=== PATIENT | female | born 1985 | race Caucasian/White ===

== ENCOUNTER 2016-10-22 19:10 | Inpatient (IN) | payer OTHER ==
[~2016-10-22] VITALS: Ht 157.5 cm; Wt 63.5 kg
[~2016-10-22 19:10] MED LIST: ALEVE220 MG PO; ASPIRIN81 M2 PO; CELLCEPT500 MG PO; CHLORTHALIDONE50 MG PO; COLACE100 MG PO; COZAAR100 MG PO; DELTASONE5 MG PO; DILAUDID2 MG PO; INDERIDE 40/1 TABLET PO; MYFORTIC360 MG PO; NAPROSYN500 MG PO; NORCO 5/3251 TABLET PO; NORVASC10 MG PO; NORVASC5 MG PO; OSCAL 250 W/VI250 MG PO; PLAQUENIL200 MG PO; PREDNISONE10 MG PO; RAYOS5 MG PO; ROXICODONE15 MG PO; ULTRAM50 MG PO; ZESTRIL,PRINIVI10 M1 GT; ZESTRIL,PRINIVI10 MG PO
[2016-10-22 20:03] LABS: HEMATOCRIT 41.9 % (36.0-46.0); MCHC 33.2 G/DL (30.0-36.0); MCV 75.5 FL (83-99); RBC DIS.WIDTH-CV 13.7 % (11.8-14.6); RBC DIS.WIDTH-SD 37.3 % (39-53); RED BLOOD COUNT 5.55 M/uL (3.80-5.20); WHITE BLOOD COUNT 8.9 K/uL (4.1-10.2)
[2016-10-22 20:22] LABS: CHLORIDE 109 mEq/L (99-109); POTASSIUM 3.9 mEq/L (3.7-5.4); SODIUM 146 mEq/L (136-147)
[2016-10-22 20:24] LABS: GLUCOSE 100 mg/dL (70-99)
[2016-10-22 20:25] LABS: ANION GAP 12 MEQ/L (2-14)
[2016-10-22 20:26] LABS: TOTAL BILIRUBIN 0.5 mg/dL (0.0-1.0)
[2016-10-22 20:28] LABS: ALKALINE PHOSPHATASE 75 IU/L (3-129); GFR ESTIMATE (CALCULATED) 22 mL/min/
[2016-10-22 20:29] LABS: UREA NITROGEN (BUN) 33 mg/dL (9-23)
[2016-10-22 20:36] LABS: QUANTITATIVE HCG < 4.0 MIU/ML
[2016-10-22 20:44] LABS: LIPASE 35 U/L (1.0-51.0)
[2016-10-22 21:07] LABS: HEMATOLOGY COMMENT 1 NPD; PLATELET COUNT 100 K/uL (156-360)
[2016-10-22 22:15] LABS: SERUM ETHYL ALCOHOL < 10 mg/dL
[2016-10-22 22:18] LABS: SALICYLATE < 5.0 MG/DL (15-30)
[2016-10-22 23:35] LABS: ADD MIUA? YES; BILIRUBIN NEGATIVE; BLOOD SMALL; COLOR YELLOW ((YELLOW)); GLUCOSE (STRIP) NEGATIVE; KETONES NEGATIVE; LEUKOCYTES NEGATIVE; NITRITE NEGATIVE; PH, URINE 7.5 (5-8); PROTEIN (STRIP) >=300; SPECIFIC GRAVITY 1.016 (1.000-1.030); UROBILINOGEN 0.2 MG/DL (0.2-1.0)
[2016-10-23 00:29] LABS: AMPHETAMINE NEGATIVE (500 ng/mL); BARBITURATES NEGATIVE (200 ng/mL); BENZODIAZEPINES NEGATIVE (150 ng/mL); COCAINE NEGATIVE (150 ng/mL); INTERNAL CONTROLS VALID? YES; METHADONE NEGATIVE (200 ng/mL); METHAMPHETAMINE NEGATIVE (500 ng/mL); OPIATES (MORPHINE) NEGATIVE (100 ng/mL); OXYCODONE PRESUMPTIVE POSITIVE (100 ng/mL); PHENCYCLIDINE NEGATIVE (25 ng/mL); PROPOXYPHENE NEGATIVE (300 ng/mL); THC CANNABINOIDS NEGATIVE (50 ng/mL); TRICYCLIC ANTIDEPRESSANTS NEGATIVE (300 ng/mL)
[2016-10-23 00:40] LABS: BACTERIA NONE SEEN; CASTS NONE SEEN /LPF; CRYSTALS NONE SEEN; EPITHELIAL CELLS 1+; MUCUS 1+; RED BLOOD CELLS 0-5 /HPF (0-5); UCUL ADDED? NO; WHITE BLOOD CELLS 0-5 /HPF (0-5)
[2016-10-23 05:32] LABS: APPEARANCE CLEAR/COLORLESS; RED CELL AREA COUNTED 18; RED CELL COUNT 4 /MM^3 (0-1); RED CELL DILUTION 1; WBC AREA COUNTED 18; WBC DILUTION 1; WHITE CELL COUNT 1 /MM^3 (0-5); WHITE CELL RAW COUNT 1
[2016-10-23 06:10] LABS: CSF EOSINOPHILS 0 % (0-25); MONO RAW COUNT 0; MONONUCLEAR WBC'S 0 % (50-90); POLY RAW COUNT 0; POLYNUCLEAR WBC'S 0 % (0-3)
[2016-10-23 06:56] LABS: Estimated Average Glucose 111 mg/dL (70-123); HEMOGLOBIN A1c (GLYCOHEMOGLOB) 5.5 % HGB (Below 5.7)
[2016-10-23 07:02] LABS: C3 COMPLEMENT 85 MG/DL (58-170); C4 COMPLEMENT 22 MG/DL (10-40)
[2016-10-23 07:25] LABS: HDL CHOLESTEROL 45 MG/DL (Desirable>=50); LDL CHOLESTEROL 125 mg/dL (Desirable<100); NON-HDL CHOLESTEROL 144 mg/dL (Desirable<160); TOTAL CHOLESTEROL 189 mg/dL (Desirable<200); TRIGLYCERIDES 95 MG/DL (Normal: <150)
[2016-10-23 07:31] LABS: HEMATOCRIT 38.2 % (36.0-46.0); MCV 75.8 FL (83-99); PLATELET COUNT UNABLE TO REPORT K/uL (156-360); RBC DIS.WIDTH-CV 13.7 % (11.8-14.6); RBC DIS.WIDTH-SD 36.4 % (39-53); RED BLOOD COUNT 5.04 M/uL (3.80-5.20); WHITE BLOOD COUNT 8.2 K/uL (4.1-10.2)
[2016-10-23 15:15] LABS: ANION GAP 11 MEQ/L (2-14); CHLORIDE 109 MEQ/L (99-109); GFR ESTIMATE (CALCULATED) 24 mL/min/; GLUCOSE 130 mg/dL (70-99); POTASSIUM 3.7 MEQ/L (3.7-5.4); SODIUM 143 MEQ/L (136-147); UREA NITROGEN (BUN) 30 mg/dL (9-23)
[2016-10-23 16:11] LABS: HEMATOCRIT 40.2 % (36.0-46.0); MCH 24.9 PG (29.0-34.0); MCHC 32.8 G/DL (30.0-36.0); MCV 75.8 FL (83-99); MEAN PLAT.VOLUME 12.3 uM^3 (9.5-12.4); PLATELET COUNT 146 K/uL (156-360); RBC DIS.WIDTH-CV 13.8 % (11.8-14.6); RBC DIS.WIDTH-SD 37.7 % (39-53); WHITE BLOOD COUNT 8.5 K/uL (4.1-10.2)
[2016-10-23 18:19] VITALS: BP 144/93
[2016-10-23 19:20] VITALS: BP 157/90
[2016-10-24] VITALS (7 sets, daily range): BP systolic 129–146; BP diastolic 74–92
[2016-10-24 07:25] LABS: ANION GAP 12 MEQ/L (2-14); CHLORIDE 107 MEQ/L (99-109); GFR ESTIMATE (CALCULATED) 18 mL/min/; GLUCOSE 109 mg/dL (70-99); MAGNESIUM 2.1 mg/dl (1.3-2.7); POTASSIUM 4.2 MEQ/L (3.7-5.4); SAMPLE HEMOLYSIS CHECK 0; SAMPLE ICTERIC CHECK 0; SAMPLE LIPEMIA CHECK 0; SODIUM 142 MEQ/L (136-147); URIC ACID 6.7 mg/dL (3.1-9.2)
[2016-10-24 07:28] LABS: UREA NITROGEN (BUN) 47 mg/dL (9-23)
[2016-10-24 07:43] LABS: HEMATOCRIT 40.1 % (36.0-46.0); MCH 25.3 PG (29.0-34.0); MCHC 32.4 G/DL (30.0-36.0); PLATELET COUNT 161 K/uL (156-360); RBC DIS.WIDTH-CV 13.9 % (11.8-14.6); RBC DIS.WIDTH-SD 39.5 % (39-53); RED BLOOD COUNT 5.14 M/uL (3.80-5.20)
[2016-10-24 09:08] LABS: WHITE BLOOD COUNT 18.3 K/uL (4.1-10.2)
[2016-10-24] MEDS ORDERED: OXYCODONE HCL15 MG PO (13:04)
[2016-10-24] MEDS ORDERED: OXYMORPHONE HCL30 MG PO (13:06)
[2016-10-24] MEDS ORDERED: NORVASC10 MG PO (13:07)
[2016-10-24] MEDS ORDERED: PREDNISONE5 MG PO (13:07)
[2016-10-24] MEDS ORDERED: ZOLOFT100 MG PO (13:07)
[2016-10-24] MEDS ORDERED: PLAQUENIL200 MG PO (13:08)
[2016-10-24 18:12] LABS: UR CREATININE CONCENTRATION 69.6 MG/DL
[2016-10-25 04:00] VITALS: BP 137/89
[2016-10-25 07:18] LABS: ANION GAP 9 MEQ/L (2-14); CHLORIDE 109 MEQ/L (99-109); GFR ESTIMATE (CALCULATED) 19 mL/min/; GLUCOSE 85 mg/dL (70-99); POTASSIUM 4.1 MEQ/L (3.7-5.4); SAMPLE HEMOLYSIS CHECK 0; SAMPLE ICTERIC CHECK 0; SAMPLE LIPEMIA CHECK 0; SODIUM 141 MEQ/L (136-147); UREA NITROGEN (BUN) 48 mg/dL (9-23)
[2016-10-25 07:19] VITALS: BP 142/95
[2016-10-25 07:21] LABS: EOSINOPHIL (%) 3.3 % (0-5); EOSINOPHIL COUNT 0.3 K/uL (0-0.3); IMMATURE GRANULOCYTE (%) 0.4 % (0.0-0.7); LYMPHOCYTE COUNT 2.9 K/uL (1.0-2.8); MONOCYTE (%) 5.7 % (3-12); MONOCYTE COUNT 0.5 K/uL (0-0.8); NEUTROPHIL (%) 58.5 % (45-76); NEUTROPHIL COUNT 5.4 K/uL (1.8-6.4)
[2016-10-25 07:44] LABS: HEMATOCRIT 36.7 % (36.0-46.0); MCH 25.1 PG (29.0-34.0); MCHC 31.6 G/DL (30.0-36.0); MCV 79.3 FL (83-99); RBC DIS.WIDTH-CV 14.2 % (11.8-14.6); RBC DIS.WIDTH-SD 41.1 % (39-53); RED BLOOD COUNT 4.63 M/uL (3.80-5.20)
[2016-10-25 07:45] LABS: WHITE BLOOD COUNT 9.3 K/uL (4.1-10.2)
[2016-10-25 08:28] LABS: HEMATOLOGY COMMENT 1 REV; USER ID DLS
[2016-10-25 08:42] LABS: PLATELET COUNT 110 K/uL (156-360)
[2016-10-25 09:48] LABS: ANTI-NUCLEAR AB SCRN/RFLX(ANA) EQUIVOCAL (NONREACTIVE)
[2016-10-25 09:57] LABS: CENTROMERE ANTIBODY 8 U/mL (0-99); HISTONE ANTIBODY 113 U/mL (0-99); JO-1 ANTIBODY 24 U/mL (0-99); SCL-70 (SCLERODERMA) ANTIBODY 15 U/mL (0-99); SM (SMITH) ANTIBODY 18 U/mL (0-99); SS-A (SJOGREN'S) ANTIBODY 32 U/mL (0-99); SS-B (SJOGREN'S) ANTIBODY 20 U/mL (0-99)
[2016-10-25 11:31] VITALS: BP 140/91
[2016-10-25 13:31] LABS: PROTHROMBIN TIME 10.5 (9.2-11.2); PTT 46.4 (25-32)
[2016-10-25 14:07] LABS: HIV INDEX 0.15; HIV-1/2 AB/AG COMBO Nonreactive
[2016-10-25 14:08] LABS: HBSG INDEX 0.16
[2016-10-25 17:18] VITALS: BP 137/88
[2016-10-25 20:30] VITALS: BP 115/71
[2016-10-25 20:44] LABS: Neutrophil Cytoplasmic Aby Negative (Negative)
[2016-10-25 23:18] VITALS: BP 113/76
[2016-10-26] VITALS (9 sets, daily range): BP systolic 113–151; BP diastolic 69–90
[2016-10-26 06:52] LABS: EOSINOPHIL (%) 5.8 % (0-5); EOSINOPHIL COUNT 0.3 K/uL (0-0.3); HEMATOCRIT 32.8 % (36.0-46.0); IMMATURE GRANULOCYTE (%) 0.3 % (0.0-0.7); LYMPHOCYTE COUNT 1.9 K/uL (1.0-2.8); MCH 24.9 PG (29.0-34.0); MCHC 31.1 G/DL (30.0-36.0); MONOCYTE (%) 7.4 % (3-12); MONOCYTE COUNT 0.4 K/uL (0-0.8); NEUTROPHIL (%) 52.5 % (45-76); NEUTROPHIL COUNT 3.1 K/uL (1.8-6.4); RBC DIS.WIDTH-CV 14.1 % (11.8-14.6); RBC DIS.WIDTH-SD 41.1 % (39-53)
[2016-10-26 06:53] LABS: WHITE BLOOD COUNT 5.8 K/uL (4.1-10.2)
[2016-10-26 07:04] LABS: PLAT.SUFFICIENCY ADEQUATE; PLATELET COUNT UNABLE TO REPORT K/uL (156-360)
[2016-10-26 08:30] LABS: ANION GAP 9 MEQ/L (2-14); CHLORIDE 106 MEQ/L (99-109); GFR ESTIMATE (CALCULATED) 15 mL/min/; GLUCOSE 87 mg/dL (70-99); POTASSIUM 4.7 MEQ/L (3.7-5.4); SAMPLE HEMOLYSIS CHECK 0; SAMPLE ICTERIC CHECK 0; SAMPLE LIPEMIA CHECK 0; SODIUM 138 MEQ/L (136-147); UREA NITROGEN (BUN) 55 mg/dL (9-23)
[2016-10-26 08:34] LABS: QUANTITATIVE HCG < 4.0 MIU/ML
[2016-10-26 22:56] LABS: EOSINOPHIL (%) 0.3 % (0-5); HEMATOCRIT 30.9 % (36.0-46.0); IMMATURE GRANULOCYTE (%) 0.3 % (0.0-0.7); LYMPHOCYTE COUNT 0.3 K/uL (1.0-2.8); MCH 25.3 PG (29.0-34.0); MONOCYTE (%) 0.5 % (3-12); NEUTROPHIL COUNT 3.6 K/uL (1.8-6.4); RED BLOOD COUNT 3.91 M/uL (3.80-5.20)
[2016-10-26 23:00] LABS: PLAT.SUFFICIENCY DECREASED
[2016-10-26 23:04] LABS: PLATELET COUNT 42 K/uL (156-360); WHITE BLOOD COUNT 3.9 K/uL (4.1-10.2)
[2016-10-27] VITALS (9 sets, daily range): BP systolic 129–165; BP diastolic 77–97
[2016-10-27 09:33] LABS: EOSINOPHIL (%) 0 % (0-5); HEMATOCRIT 31.8 % (36.0-46.0); IMMATURE GRANULOCYTE (%) 0.4 % (0.0-0.7); LYMPHOCYTE COUNT 0.5 K/uL (1.0-2.8); MCH 24.9 PG (29.0-34.0); MCHC 31.4 G/DL (30.0-36.0); MCV 79.3 FL (83-99); MONOCYTE (%) 3.3 % (3-12); MONOCYTE COUNT 0.3 K/uL (0-0.8); NEUTROPHIL (%) 89.8 % (45-76); NEUTROPHIL COUNT 7.6 K/uL (1.8-6.4); RBC DIS.WIDTH-SD 40.1 % (39-53); RED BLOOD COUNT 4.01 M/uL (3.80-5.20)
[2016-10-27 09:34] LABS: WHITE BLOOD COUNT 8.5 K/uL (4.1-10.2)
[2016-10-27 09:48] LABS: ALKALINE PHOSPHATASE 67 IU/L (3-129); ANION GAP 12 MEQ/L (2-14); CHLORIDE 102 MEQ/L (99-109); GFR ESTIMATE (CALCULATED) 15 mL/min/; GLUCOSE 125 mg/dL (70-99); MAGNESIUM 2.2 mg/dl (1.3-2.7); POTASSIUM 4.8 MEQ/L (3.7-5.4); SAMPLE HEMOLYSIS CHECK 0; SAMPLE ICTERIC CHECK 0; SAMPLE LIPEMIA CHECK 0; SODIUM 137 MEQ/L (136-147); TOTAL BILIRUBIN 0.4 MG/DL (0.0-1.0); UREA NITROGEN (BUN) 63 mg/dL (9-23)
[2016-10-27 11:07] LABS: USER ID TLW
[2016-10-27 11:21] LABS: PLATELET COUNT UNABLE TO REPORT K/uL (156-360)
[2016-10-28] VITALS: BP 150/94
[2016-10-28 04:50] VITALS: BP 144/90
[2016-10-28 05:47] LABS: EOSINOPHIL (%) 0 % (0-5); HEMATOCRIT 28.9 % (36.0-46.0); IMMATURE GRANULOCYTE (%) 0.5 % (0.0-0.7); IMMATURE GRANULOCYTE COUNT 0.1 K/uL; LYMPHOCYTE COUNT 0.6 K/uL (1.0-2.8); MCH 24.8 PG (29.0-34.0); MCHC 31.5 G/DL (30.0-36.0); MCV 78.7 FL (83-99); MONOCYTE (%) 3.1 % (3-12); MONOCYTE COUNT 0.3 K/uL (0-0.8); NEUTROPHIL COUNT 8.6 K/uL (1.8-6.4); RBC DIS.WIDTH-CV 13.8 % (11.8-14.6); RBC DIS.WIDTH-SD 39.7 % (39-53); RED BLOOD COUNT 3.67 M/uL (3.80-5.20); WHITE BLOOD COUNT 9.5 K/uL (4.1-10.2)
[2016-10-28 06:09] LABS: ANION GAP 10 MEQ/L (2-14); CHLORIDE 104 MEQ/L (99-109); GFR ESTIMATE (CALCULATED) 16 mL/min/; GLUCOSE 160 mg/dL (70-99); POTASSIUM 5.2 MEQ/L (3.7-5.4); SAMPLE HEMOLYSIS CHECK 0; SAMPLE ICTERIC CHECK 0; SAMPLE LIPEMIA CHECK 0; SODIUM 137 MEQ/L (136-147); UREA NITROGEN (BUN) 78 mg/dL (9-23)
[2016-10-28 06:55] LABS: PLAT.SUFFICIENCY DECREASED; PLATELET COUNT UNABLE TO REPORT K/uL (156-360); USER ID CCL
[2016-10-28 07:38] VITALS: BP 160/97
[2016-10-28 11:53] VITALS: BP 142/90
[2016-10-28 16:19] VITALS: BP 150/89
[2016-10-28 19:38] VITALS: BP 133/80
[2016-10-29 00:20] VITALS: BP 139/86
[2016-10-29 04:34] VITALS: BP 155/86
[2016-10-29 07:24] LABS: CHLORIDE 105 MEQ/L (99-109); GFR ESTIMATE (CALCULATED) 15 mL/min/; GLUCOSE 125 mg/dL (70-99); POTASSIUM 5.4 MEQ/L (3.7-5.4); SODIUM 135 MEQ/L (136-147); UREA NITROGEN (BUN) 84 mg/dL (9-23)
[2016-10-29 07:25] LABS: ANION GAP 8 MEQ/L (2-14); SAMPLE HEMOLYSIS CHECK 0; SAMPLE ICTERIC CHECK 0; SAMPLE LIPEMIA CHECK 0
[2016-10-29 07:40] LABS: HEMATOCRIT 31.1 % (36.0-46.0); MCH 24.6 PG (29.0-34.0); MCHC 31.5 G/DL (30.0-36.0); MCV 78.1 FL (83-99); RBC DIS.WIDTH-CV 13.6 % (11.8-14.6); RBC DIS.WIDTH-SD 38.6 % (39-53); RED BLOOD COUNT 3.98 M/uL (3.80-5.20); WHITE BLOOD COUNT 10.3 K/uL (4.1-10.2)
[2016-10-29 09:15] LABS: PLATELET COUNT 131 K/uL (156-360)
[2016-10-29 09:20] VITALS: BP 167/95
[2016-10-29] MEDS ORDERED: PREDNISONE10 MG PO (11:58)
[2016-10-29] MEDS ORDERED: NORVASC10 MG PO (11:58)
[2016-10-29] MEDS ORDERED: PRAVASTATIN SOD40 MG PO (11:58)
[2016-10-29] MEDS ORDERED: LOSARTAN POTASS25 MG PO (11:58)
[2016-10-29] MEDS ORDERED: MYCOPHENOLIC A180 MG PO (11:58)
[2016-10-29] MEDS ORDERED: NICOTINE PATCH1 EAC2 TD (11:58)
[2016-10-29] MEDS ORDERED: LABETALOL HCL200 MG PO (11:58)
[2016-10-29] MEDS ORDERED: ALPRAZOLAM0.25 M2 PO (11:58)
[2016-10-29] MEDS ORDERED: OYSTER SHELL 51 EACH PO (11:58)
[2016-10-29 15:23] VITALS: BP 138/76
[2016-10-29 20:51] VITALS: BP 152/89
[2016-10-30 00:26] VITALS: BP 137/993
[2016-10-30 05:15] VITALS: BP 140/88
[2016-10-30 08:11] VITALS: BP 169/100
[2016-10-30 08:46] LABS: EOSINOPHIL (%) 0.5 % (0-5); HEMATOCRIT 34.3 % (36.0-46.0); IMMATURE GRANULOCYTE COUNT 0.2 K/uL; LYMPHOCYTE COUNT 1.7 K/uL (1.0-2.8); MCH 25.3 PG (29.0-34.0); MCHC 32.1 G/DL (30.0-36.0); MONOCYTE (%) 11.9 % (3-12); NEUTROPHIL (%) 64.9 % (45-76); NEUTROPHIL COUNT 5.5 K/uL (1.8-6.4); RBC DIS.WIDTH-CV 13.6 % (11.8-14.6); RED BLOOD COUNT 4.34 M/uL (3.80-5.20); WHITE BLOOD COUNT 8.5 K/uL (4.1-10.2)
[2016-10-30 09:31] LABS: ANION GAP 8 MEQ/L (2-14); CHLORIDE 108 MEQ/L (99-109); GFR ESTIMATE (CALCULATED) 17 mL/min/; POTASSIUM 4.9 MEQ/L (3.7-5.4); SAMPLE HEMOLYSIS CHECK 0; SAMPLE ICTERIC CHECK 0; SAMPLE LIPEMIA CHECK 0; SODIUM 139 MEQ/L (136-147); UREA NITROGEN (BUN) 77 mg/dL (9-23)
[2016-10-30 09:38] LABS: GLUCOSE 85 mg/dL (70-99)
[2016-10-30 10:38] LABS: USER ID TLW
[2016-10-30 10:42] LABS: PLATELET COUNT UNABLE TO REPORT K/uL (156-360)
[2016-10-30 11:37] VITALS: BP 123/76
[2016-10-30] MEDS ORDERED: NIFEDIPINE ER30 MG PO (14:37)
[2016-10-30] MEDS ORDERED: PREDNISONE5 MG PO (14:37)
== END 2016-10-30 17:15 | disposition home or self-care (01) | DRG 77 ==
LOC: EME 19:10 → 4EAST 10-23 03:35 → EDOF 10-23 03:35 → 4EAST 10-23 17:17
PROVIDERS: Emergency Medicine; Hospitalist; Internal Medicine Nephrology
PROC: 009U3ZX Drainage of Spinal Canal, Percutaneous Approach, Diagnostic (ICD-10-PCS; principal; 2016-10-23)
PROC: 0TB13ZX Excision of Left Kidney, Percutaneous Approach, Diagnostic (ICD-10-PCS; 2016-10-25)
PROC: 30253R1 (ICD-10-PCS; 2016-10-26)
DX: I67.4 Hypertensive encephalopathy (principal); M31.1 Thrombotic microangiopathy; I16.1 Hypertensive emergency; N17.9 Acute kidney failure, unspecified; D68.61 Antiphospholipid syndrome; F33.9 Major depressive disorder, recurrent, unspecified; N99.840 Postprocedural hematoma of a genitourinary system organ or structure following a genitourinary system procedure; I12.9 Hypertensive chronic kidney disease with stage 1 through stage 4 chronic kidney disease, or unspecified chronic kidney disease; N18.3 Chronic kidney disease, stage 3 (moderate); M32.14 Glomerular disease in systemic lupus erythematosus; G43.909 Migraine, unspecified, not intractable, without status migrainosus; G89.4 Chronic pain syndrome; F17.210 Nicotine dependence, cigarettes, uncomplicated; F41.9 Anxiety disorder, unspecified
CPT/HCPCS: 70450; 70551; 71010; 74176; 76705; 76770; 76775; 77012; 80048; 80053; 80061; 80202; 81003; 82040; 82140; 82436; 82570; 82945; 83036; 83690; 83735; 84100; 84133; 84156; 84157; 84300; 84550; 84702; 85025; 85025 91; 85027; 85610; 85651; 85730; 86021 90; 86038; 86147 90; 86160; 86162 90; 86235; 86703; 86803; 86850; 86860; 86870; 86880; 86900; 86901; 86920; 87040; 87070; 87205; 87340; 87801; 88305 90; 88313 90; 88346 90; 88348 90; 89051; 92523 GN; 93005; 95819; 99281; 99285; G0480; J1644; J2060; J2405; J2597; J2930; J3010; J3370; J7050; J7512; J7518; P9035

== ENCOUNTER 2016-12-05 21:01 | Emergency (ER) | payer OTHER ==
[~2016-12-05] VITALS: Ht 160 cm; Wt 66.1 kg
[~2016-12-05 21:01] MED LIST changes: +ALPRAZOLAM0.25 M2 PO; +LABETALOL HCL200 MG PO; +LOSARTAN POTASS25 MG PO; +MYCOPHENOLIC A180 MG PO; +NICOTINE PATCH1 EAC2 TD; +NIFEDIPINE ER30 MG PO; +OXYCODONE HCL15 MG PO; +OXYMORPHONE HCL30 MG PO; +OYSTER SHELL 51 EACH PO; +PRAVASTATIN SOD40 MG PO; +PREDNISONE5 MG PO; +ZOLOFT100 MG PO
[2016-12-06] MEDS ORDERED: SKELAXIN800 MG PO (01:34)
[2016-12-06 01:45] VITALS: BP 156/98
== END 2016-12-06 01:46 | disposition home or self-care (01) ==
LOC: EME 21:01
DX: M54.5 Low back pain (principal); M25.552 Pain in left hip; V44.5XXA Car driver injured in collision with heavy transport vehicle or bus in traffic accident, initial encounter; G89.29 Other chronic pain; Z79.891 Long term (current) use of opiate analgesic; Z98.890 Other specified postprocedural states; F17.200 Nicotine dependence, unspecified, uncomplicated
CPT/HCPCS: 76770; 99281; 99283

== ENCOUNTER 2017-01-25 11:07 | Emergency (ER) | payer OTHER ==
[~2017-01-25] VITALS: Ht 160 cm; Wt 60.7 kg
[~2017-01-25 11:07] MED LIST changes: +SKELAXIN800 MG PO
[2017-01-25] MEDS ORDERED: VALTREX1000 MG PO (12:16)
[2017-01-25] MEDS ORDERED: PREDNISONE10 MG PO (12:16)
[2017-01-25 12:44] VITALS: BP 190/139
== END 2017-01-25 12:45 | disposition home or self-care (01) ==
LOC: EME 11:07
DX: G51.0 Bell's palsy (principal); I10 Essential (primary) hypertension; N19 Unspecified kidney failure; F17.200 Nicotine dependence, unspecified, uncomplicated; Z86.718 Personal history of other venous thrombosis and embolism
CPT/HCPCS: 99281; 99284

== ENCOUNTER 2017-06-29 14:53 | Inpatient (IN) | payer OTHER ==
[~2017-06-29] VITALS: Ht 157.5 cm; Wt 52.4 kg
[~2017-06-29 14:53] MED LIST changes: -OXYCODONE HCL15 MG PO; +OXYCODONE HCL5 MG PO; +VALTREX1000 MG PO
[2017-06-29 16:30] LABS: HEMATOCRIT 35.1 % (36.0-46.0); MCH 24.9 PG (29.0-34.0); MCV 75.5 FL (83-99); MEAN PLAT.VOLUME 11.3 uM^3 (9.5-12.4); PLATELET COUNT 76 K/uL (156-360); RBC DIS.WIDTH-CV 13.6 % (11.8-14.6); RED BLOOD COUNT 4.65 M/uL (3.80-5.20); WHITE BLOOD COUNT 4.4 K/uL (4.1-10.2)
[2017-06-29] MEDS ORDERED: FUROSEMIDE20 MG PO (16:37)
[2017-06-29 16:39] LABS: CHLORIDE 107 mEq/L (99-109); POTASSIUM 3.6 mEq/L (3.7-5.4); SODIUM 140 mEq/L (136-147)
[2017-06-29 16:42] LABS: GLUCOSE 88 mg/dL (70-99)
[2017-06-29] MEDS ORDERED: OXYCONTIN40 MG PO (16:42)
[2017-06-29 16:43] LABS: ANION GAP 14 MEQ/L (2-14)
[2017-06-29 16:44] LABS: TOTAL BILIRUBIN 0.4 mg/dL (0.0-1.0)
[2017-06-29 16:45] LABS: ALKALINE PHOSPHATASE 76 IU/L (3-129)
[2017-06-29 16:46] LABS: GFR ESTIMATE (CALCULATED) 5 mL/min/
[2017-06-29 16:47] LABS: UREA NITROGEN (BUN) 61 mg/dL (9-23)
[2017-06-29 16:55] LABS: QUANTITATIVE HCG < 4.0 MIU/ML
[2017-06-29 19:15] LABS: ADD MIUA? YES; BILIRUBIN NEGATIVE; BLOOD SMALL; COLOR YELLOW ((YELLOW)); GLUCOSE (STRIP) NEGATIVE; KETONES NEGATIVE; LEUKOCYTES TRACE; NITRITE NEGATIVE; PROTEIN (STRIP) >=500; SPECIFIC GRAVITY 1.009 (1.000-1.030); UROBILINOGEN 0.2 MG/DL (0.2-1.0)
[2017-06-29 19:26] VITALS: BP 148/85
[2017-06-29 19:40] LABS: CASTS NONE SEEN /LPF; EPITHELIAL CELLS 1+ /HPF; MUCUS NONE SEEN /LPF
[2017-06-29 19:43] LABS: BACTERIA 1+ /HPF; RED BLOOD CELLS 0-5 /HPF (0-5); UCUL ADDED? YES
[2017-06-29 23:53] VITALS: BP 143/89
[2017-06-30 03:27] VITALS: BP 133/82
[2017-06-30 07:32] LABS: ANION GAP 13 MEQ/L (2-14); CHLORIDE 109 MEQ/L (99-109); CREATINE KINASE 60 IU/L (1-294); GFR ESTIMATE (CALCULATED) 5 mL/min/; GLUCOSE 74 mg/dL (70-99); IRON 82 MCG/DL (35-150); POTASSIUM 3.4 MEQ/L (3.7-5.4); SAMPLE HEMOLYSIS CHECK 0; SAMPLE ICTERIC CHECK 0; SAMPLE LIPEMIA CHECK 0; SODIUM 142 MEQ/L (136-147); UREA NITROGEN (BUN) 57 mg/dL (9-23)
[2017-06-30 07:37] LABS: HEMATOCRIT 29.6 % (36.0-46.0); HEMATOLOGY COMMENT 1 SN; MCH 25.4 PG (29.0-34.0); MCHC 32.4 G/DL (30.0-36.0); MCV 78.3 FL (83-99); MEAN PLAT.VOLUME 12.8 uM^3 (9.5-12.4); PLAT.SUFFICIENCY DECREASED; RBC DIS.WIDTH-CV 13.9 % (11.8-14.6); RBC DIS.WIDTH-SD 39.8 % (39-53); RED BLOOD COUNT 3.78 M/uL (3.80-5.20); WHITE BLOOD COUNT 4.3 K/uL (4.1-10.2)
[2017-06-30 07:38] VITALS: BP 154/104
[2017-06-30 07:38] LABS: PLATELET COUNT 129 K/uL (156-360)
[2017-06-30 07:47] LABS: URIC ACID 9.1 mg/dL (3.1-9.2)
[2017-06-30 08:58] VITALS: BP 145/90
[2017-06-30 11:31] VITALS: BP 135/95
[2017-06-30 15:58] VITALS: BP 144/100
[2017-06-30 19:55] VITALS: BP 128/81
[2017-07-01 04:04] VITALS: BP 134/85
[2017-07-01 06:52] LABS: ANION GAP 11 MEQ/L (2-14); CHLORIDE 113 MEQ/L (99-109); GFR ESTIMATE (CALCULATED) 6 mL/min/; GLUCOSE 80 mg/dL (70-99); POTASSIUM 3.6 MEQ/L (3.7-5.4); SAMPLE HEMOLYSIS CHECK 0; SAMPLE ICTERIC CHECK 0; SAMPLE LIPEMIA CHECK 0; SODIUM 143 MEQ/L (136-147); UREA NITROGEN (BUN) 52 mg/dL (9-23)
[2017-07-01 07:27] VITALS: BP 132/76
[2017-07-01 11:46] VITALS: BP 116/70
[2017-07-01 14:30] LABS: HBSG INDEX 0.18; HPCA INDEX 0.24
[2017-07-01 14:31] LABS: ANTI-HEPATITIS A VIRUS (IGM) Nonreactive; ANTI-HEPATITIS B CORE (IGM) Nonreactive; HAV INDEX 0.21
[2017-07-01 16:06] VITALS: BP 117/75
[2017-07-02] VITALS: BP 138/89
[2017-07-02 07:16] VITALS: BP 136/73
[2017-07-02 07:58] LABS: EOSINOPHIL (%) 6.5 % (0-5); EOSINOPHIL COUNT 0.3 K/uL (0-0.3); HEMATOCRIT 31.2 % (36.0-46.0); IMMATURE GRANULOCYTE (%) 0.2 % (0.0-0.7); INSTRUMENT ABS NEUTROPHIL CT 2.1 K/uL; LYMPHOCYTE COUNT 1.8 K/uL (1.0-2.8); MCH 24.8 PG (29.0-34.0); MCHC 31.4 G/DL (30.0-36.0); MONOCYTE (%) 5.2 % (3-12); MONOCYTE COUNT 0.2 K/uL (0-0.8); NEUTROPHIL (%) 47.4 % (45-76); NEUTROPHIL COUNT 2.1 K/uL (1.8-6.4); PLATELET COUNT 102 K/uL (156-360); RBC DIS.WIDTH-CV 13.9 % (11.8-14.6); RBC DIS.WIDTH-SD 40.1 % (39-53); RED BLOOD COUNT 3.95 M/uL (3.80-5.20); WHITE BLOOD COUNT 4.5 K/uL (4.1-10.2)
[2017-07-02 08:47] LABS: ANION GAP 10 MEQ/L (2-14); CHLORIDE 115 MEQ/L (99-109); GFR ESTIMATE (CALCULATED) 6 mL/min/; GLUCOSE 85 mg/dL (70-99); SAMPLE HEMOLYSIS CHECK 0; SAMPLE ICTERIC CHECK 0; SAMPLE LIPEMIA CHECK 0; SODIUM 143 MEQ/L (136-147); UREA NITROGEN (BUN) 49 mg/dL (9-23)
[2017-07-02 23:52] VITALS: BP 151/102
[2017-07-03 08:18] VITALS: BP 143/88
[2017-07-03 08:45] LABS: EOSINOPHIL (%) 5.7 % (0-5); EOSINOPHIL COUNT 0.3 K/uL (0-0.3); HEMATOCRIT 30.1 % (36.0-46.0); IMM.RETIC FRACTION 1.4 % (3-19); IMMATURE GRANULOCYTE (%) 0.2 % (0.0-0.7); INSTRUMENT ABS NEUTROPHIL CT 2.3 K/uL; LYMPHOCYTE COUNT 2.1 K/uL (1.0-2.8); MCH 24.5 PG (29.0-34.0); MCHC 31.2 G/DL (30.0-36.0); MCV 78.4 FL (83-99); MONOCYTE (%) 4.5 % (3-12); MONOCYTE COUNT 0.2 K/uL (0-0.8); NEUTROPHIL (%) 46.7 % (45-76); NEUTROPHIL COUNT 2.3 K/uL (1.8-6.4); RBC DIS.WIDTH-CV 13.7 % (11.8-14.6); RBC DIS.WIDTH-SD 38.8 % (39-53); RED BLOOD COUNT 3.84 M/uL (3.80-5.20); RETIC HGB EQUIVALENT 27.7 (28-36); RETICULOCYTE COUNT 0.6 % (0.5-1.8); WHITE BLOOD COUNT 4.9 K/uL (4.1-10.2)
[2017-07-03 08:59] LABS: IMM.PLATELET FRACTION 11.2 (1-7); PLAT.SUFFICIENCY DECREASED
[2017-07-03 09:01] LABS: PLATELET COUNT ND K/uL (156-360)
[2017-07-03 10:28] LABS: ANION GAP 10 MEQ/L (2-14); CHLORIDE 110 MEQ/L (99-109); GFR ESTIMATE (CALCULATED) 9 mL/min/; GLUCOSE 88 mg/dL (70-99); LACTATE DEHYDROGENASE 202 IU/L (20-246); POTASSIUM 3.9 MEQ/L (3.7-5.4); SAMPLE HEMOLYSIS CHECK 0; SAMPLE ICTERIC CHECK 0; SAMPLE LIPEMIA CHECK 0; SODIUM 143 MEQ/L (136-147); UREA NITROGEN (BUN) 27 mg/dL (9-23)
[2017-07-03 10:37] LABS: FERRITIN 125 NG/ML (10-291)
[2017-07-03 12:01] VITALS: BP 114/64
[2017-07-03] MEDS ORDERED: ASPIR-LOW81 MG PO (12:27)
[2017-07-03] MEDS ORDERED: LOSARTAN POTASS25 MG PO (12:27)
[2017-07-03] MEDS ORDERED: NIFEDIPINE ER30 MG PO (12:27)
[2017-07-03] MEDS ORDERED: LABETALOL HCL200 MG PO (12:27)
[2017-07-03 12:34] LABS: AHBS INDEX 16.82
[2017-07-03 12:36] LABS: HEPATITIS B SURFACE ANTIBODY REACTIVE
[2017-07-03] MEDS ORDERED: PLAQUENIL200 MG PO (14:35)
[2017-07-03 15:30] VITALS: BP 122/70
[2017-07-03 23:25] VITALS: BP 134/91
[2017-07-04 07:00] VITALS: BP 143/94
[2017-07-04 07:12] LABS: EOSINOPHIL (%) 6.8 % (0-5); EOSINOPHIL COUNT 0.3 K/uL (0-0.3); HEMATOCRIT 28.4 % (36.0-46.0); INSTRUMENT ABS NEUTROPHIL CT 1.7 K/uL; LYMPHOCYTE COUNT 1.9 K/uL (1.0-2.8); MCH 25.8 PG (29.0-34.0); MCHC 32.7 G/DL (30.0-36.0); MCV 78.9 FL (83-99); MONOCYTE (%) 6.8 % (3-12); MONOCYTE COUNT 0.3 K/uL (0-0.8); NEUTROPHIL (%) 40.3 % (45-76); NEUTROPHIL COUNT 1.7 K/uL (1.8-6.4); RBC DIS.WIDTH-CV 13.5 % (11.8-14.6); RBC DIS.WIDTH-SD 38.8 % (39-53); WHITE BLOOD COUNT 4.3 K/uL (4.1-10.2)
[2017-07-04 07:41] LABS: PLATELET CLUMPS PRESENT - PLATELET COUNTS APPEARS DECREASED
[2017-07-04 08:22] LABS: ANION GAP 7 MEQ/L (2-14); CHLORIDE 111 MEQ/L (99-109); GFR ESTIMATE (CALCULATED) 11 mL/min/; GLUCOSE 96 mg/dL (70-99); POTASSIUM 4.4 MEQ/L (3.7-5.4); SAMPLE HEMOLYSIS CHECK 0; SAMPLE ICTERIC CHECK 0; SAMPLE LIPEMIA CHECK 0; SODIUM 143 MEQ/L (136-147); UREA NITROGEN (BUN) 22 mg/dL (9-23)
[2017-07-04 11:08] VITALS: BP 132/73
[2017-07-04 16:00] VITALS: BP 130/82
[2017-07-04 22:52] LABS: ADD PTT REFLEX? Y; ADD dRVVT REFLEX? Y; DRVVT Mixing Study Interp Positive (()); PTT-LA 155 sec (<=40); PTT-LA Reflex Has been added (()); dRVVT Screen 89 sec (<=45)
[2017-07-05] VITALS: BP 142/87
[2017-07-05 06:16] LABS: ANION GAP 10 MEQ/L (2-14); CHLORIDE 110 MEQ/L (99-109); GFR ESTIMATE (CALCULATED) 8 mL/min/; GLUCOSE 88 mg/dL (70-99); POTASSIUM 4.3 MEQ/L (3.7-5.4); SAMPLE HEMOLYSIS CHECK 0; SAMPLE ICTERIC CHECK 0; SAMPLE LIPEMIA CHECK 0; SODIUM 145 MEQ/L (136-147); UREA NITROGEN (BUN) 28 mg/dL (9-23)
[2017-07-05 13:15] LABS: DRVVT 1:1 Mix Immediate NOT CORRECTED sec (CORRECTED); LUPA PHOSPHOLIPID NEUTRALIZ Positive (Negative); THROMBIN TIME+ 28 sec (13-19)
[2017-07-05] MEDS ORDERED: PLAQUENIL200 MG PO (13:19)
[2017-07-05] MEDS ORDERED: NEPHRO-VITE,1 TABLET PO (13:21)
[2017-07-05] MEDS ORDERED: ZOFRAN4 MG PO (15:54)
[2017-07-05 17:09] LABS: HAPTOGLOBIN+ 106 mg/dL (43-212)
== END 2017-07-05 16:15 | disposition home health service (06) | DRG 683 ==
LOC: EME 14:53 → EDOF 17:45 → 5SOUTH 17:45 → ENRESERV 17:46 → 5SOUTH 19:12
PROVIDERS: Emergency Medicine; Hospitalist; Internal Medicine; Internal Medicine Nephrology
PROC: 02HV33Z Insertion of Infusion Device into Superior Vena Cava, Percutaneous Approach (ICD-10-PCS; principal; 2017-07-02)
PROC: 5A1D70Z Performance of Urinary Filtration, Intermittent, Less than 6 Hours Per Day (ICD-10-PCS; 2017-07-02)
DX: N17.9 Acute kidney failure, unspecified (principal); M32.14 Glomerular disease in systemic lupus erythematosus; I12.0 Hypertensive chronic kidney disease with stage 5 chronic kidney disease or end stage renal disease; N18.6 End stage renal disease; D68.61 Antiphospholipid syndrome; E86.0 Dehydration; D63.1 Anemia in chronic kidney disease; Z91.19 Patient's noncompliance with other medical treatment and regimen; F32.9 Major depressive disorder, single episode, unspecified; G43.909 Migraine, unspecified, not intractable, without status migrainosus; G89.4 Chronic pain syndrome; M25.551 Pain in right hip; M25.552 Pain in left hip; M54.9 Dorsalgia, unspecified; Z86.718 Personal history of other venous thrombosis and embolism; F17.200 Nicotine dependence, unspecified, uncomplicated
CPT/HCPCS: 76770; 80053; 80069; 80074; 81003; 82550; 82728; 83010 90; 83540; 83615; 84466; 84550; 84702; 85025; 85027; 85045; 85597 90; 85613 90; 85670 90; 85730 90; 86146 90; 86147 90; 86706; 87086; 99281; 99285; C1750; C1894; J0690; J0881; J1200; J1644; J2250; J2405; J3010; J7030; S0020

== ENCOUNTER 2017-07-09 15:33 | Emergency (ER) | payer OTHER ==
[~2017-07-09] VITALS: Ht 160 cm; Wt 54.5 kg
[~2017-07-09 15:33] MED LIST changes: +ASPIR-LOW81 MG PO; +FUROSEMIDE20 MG PO; +NEPHRO-VITE,1 TABLET PO; +OXYCONTIN40 MG PO; +ZOFRAN4 MG PO
[2017-07-09 17:49] LABS: INTER. NORMALIZED RATIO 1.2; PROTHROMBIN TIME 12.8 SEC (10.2-12.9)
[2017-07-09 17:51] LABS: CHLORIDE 97 mEq/L (99-109); HEMATOCRIT 33.8 % (36.0-46.0); MCH 24.8 PG (29.0-34.0); MCHC 31.1 G/DL (30.0-36.0); MCV 79.9 FL (83-99); POTASSIUM 4.3 mEq/L (3.7-5.4); RBC DIS.WIDTH-CV 13.7 % (11.8-14.6); RBC DIS.WIDTH-SD 38.5 % (39-53); RED BLOOD COUNT 4.23 M/uL (3.80-5.20); SODIUM 139 mEq/L (136-147); WHITE BLOOD COUNT 4.6 K/uL (4.1-10.2)
[2017-07-09 17:52] LABS: PTT 67.2 SEC (25-37)
[2017-07-09 17:53] LABS: GLUCOSE 88 mg/dL (70-99)
[2017-07-09 17:54] LABS: ANION GAP 14 MEQ/L (2-14)
[2017-07-09 17:55] LABS: TOTAL BILIRUBIN 0.4 mg/dL (0.0-1.0)
[2017-07-09 17:56] LABS: ALKALINE PHOSPHATASE 69 IU/L (3-129)
[2017-07-09 17:57] LABS: GFR ESTIMATE (CALCULATED) 14 mL/min/
[2017-07-09 17:58] LABS: UREA NITROGEN (BUN) 15 mg/dL (9-23)
[2017-07-09 18:26] LABS: IMM.PLATELET FRACTION 18.6 (1-7); PLAT.SUFFICIENCY VERY DECREASED
[2017-07-09 18:27] LABS: PLATELET COUNT 49 K/uL (156-360)
[2017-07-09 19:31] VITALS: BP 113/73
== END 2017-07-09 19:37 | disposition home or self-care (01) ==
LOC: EME 15:33
PROVIDERS: Nurse Practitioner Family
DX: T80.89XA Other complications following infusion, transfusion and therapeutic injection, initial encounter (principal); R53.83 Other fatigue; R41.0 Disorientation, unspecified; Y84.1 Kidney dialysis as the cause of abnormal reaction of the patient, or of later complication, without mention of misadventure at the time of the procedure; I10 Essential (primary) hypertension; M32.14 Glomerular disease in systemic lupus erythematosus; Z86.718 Personal history of other venous thrombosis and embolism; F17.200 Nicotine dependence, unspecified, uncomplicated
CPT/HCPCS: 70450; 80053; 81003; 83605; 85027; 85610; 85730; 87040; 99281; 99284

== ENCOUNTER 2017-10-23 09:15 | Day surgery (SDC) | payer OTHER ==
[~2017-10-23] VITALS: Ht 157.5 cm; Wt 63.5 kg
[~2017-10-23 09:15] MED LIST changes: +LEXAPRO5 MG PO; +OXYCONTIN20 MG PO; +PROMETHAZINE HC25 M1 PO
[2017-10-23 09:40] VITALS: BP 141/87
[2017-10-23 10:00] LABS: HEMOGLOBIN 11.3 G/DL (11.9-15.5); MCH 25.9 PG (29.0-34.0); MCHC 30.5 G/DL (30.0-36.0); MCV 84.9 FL (83-99); PLATELET COUNT 112 K/uL (156-360); RBC DIS.WIDTH-CV 15.1 % (11.8-14.6); RBC DIS.WIDTH-SD 46.3 % (39-53); RED BLOOD COUNT 4.36 M/uL (3.80-5.20); WHITE BLOOD COUNT 7.7 K/uL (4.1-10.2)
[2017-10-23 10:55] LABS: CHLORIDE 98 MEQ/L (99-109); CREATININE 4.6 MG/DL (0.6-1.3); GFR ESTIMATE (CALCULATED) 12 mL/min/; GLUCOSE 79 mg/dL (70-99); POTASSIUM 3.6 MEQ/L (3.7-5.4); SODIUM 139 MEQ/L (136-147); UREA NITROGEN (BUN) 30 mg/dL (9-23)
[2017-10-23 15:40] VITALS: BP 144/82
[2017-10-23 16:15] VITALS: BP 138/80
== END 2017-10-23 16:28 | disposition home or self-care (01) ==
LOC: SDC 09:15
PROVIDERS: Surgery
DX: I12.0 Hypertensive chronic kidney disease with stage 5 chronic kidney disease or end stage renal disease (principal); N18.6 End stage renal disease; Z87.891 Personal history of nicotine dependence; Z79.82 Long term (current) use of aspirin
CPT/HCPCS: 80048; 85027; 87641; 93005; J0690; J1170; J1644; J2250; J2405; J2720; J3010

== ENCOUNTER 2018-01-01 12:11 | Day surgery (SDC) | payer OTHER ==
[~2018-01-01] VITALS: Ht 157.5 cm; Wt 61.0 kg
[~2018-01-01 12:11] MED LIST changes: +METOCLOPRAMIDE H5 MG PO; +OMEPRAZOLE40 M1 PO; +OXYCODONE HCL15 MG PO; +OXYCONTIN30 MG PO; +RENAGEL800 MG PO; +RENAPLEX TABLE1 EACH PO
== END 2018-01-01 15:00 | disposition home or self-care (01) ==
LOC: CATH 12:11
DX: T82.858A Stenosis of other vascular prosthetic devices, implants and grafts, initial encounter (principal); Y83.2 Surgical operation with anastomosis, bypass or graft as the cause of abnormal reaction of the patient, or of later complication, without mention of misadventure at the time of the procedure; I12.0 Hypertensive chronic kidney disease with stage 5 chronic kidney disease or end stage renal disease; N18.6 End stage renal disease; Z99.2 Dependence on renal dialysis; Z86.718 Personal history of other venous thrombosis and embolism
CPT/HCPCS: 87641; C1725; C1769; C1894; J1644; J2250; J3010

== ENCOUNTER 2018-02-04 03:48 | Emergency (ER) | payer OTHER ==
[~2018-02-04] VITALS: Ht 157.5 cm; Wt 65.6 kg
[2018-02-04 05:11] LABS: HEMATOCRIT 30.5 % (36.0-46.0); MCH 26.2 PG (29.0-34.0); MCHC 32.8 G/DL (30.0-36.0); MCV 79.8 FL (83-99); RBC DIS.WIDTH-CV 15.2 % (11.8-14.6); RBC DIS.WIDTH-SD 43.8 % (39-53); RED BLOOD COUNT 3.82 M/uL (3.80-5.20); WHITE BLOOD COUNT 8.7 K/uL (4.1-10.2)
[2018-02-04 05:32] LABS: ALBUMIN 3.8 g/dL (3.2-4.8); CHLORIDE 110 mEq/L (99-109); POTASSIUM 3.8 mEq/L (3.7-5.4); SODIUM 141 mEq/L (136-147)
[2018-02-04 05:35] LABS: GLUCOSE 118 mg/dL (70-99); TOTAL PROTEIN 6.2 g/dL (6.4-8.3)
[2018-02-04 05:36] LABS: TOTAL BILIRUBIN 0.6 mg/dL (0.0-1.0)
[2018-02-04 05:38] LABS: ALKALINE PHOSPHATASE 79 IU/L (3-129); CREATININE 7.7 mg/dL (0.6-1.3); GFR ESTIMATE (CALCULATED) 6 mL/min/
[2018-02-04 05:39] LABS: UREA NITROGEN (BUN) 60 mg/dL (9-23)
[2018-02-04 05:40] LABS: AST (GOT) 13 IU/L (2-34)
[2018-02-04 05:41] LABS: ALT (GPT) 10 IU/L (3-49)
[2018-02-04 05:42] LABS: LIPASE 40 U/L (1.0-51.0)
[2018-02-04 05:45] LABS: APPEARANCE CLEAR ((CLEAR)); BILIRUBIN NEGATIVE; BLOOD NEGATIVE; COLOR STRAW ((YELLOW)); GLUCOSE (STRIP) 150; KETONES NEGATIVE; LEUKOCYTES NEGATIVE; NITRITE NEGATIVE; PROTEIN (STRIP) >=500; SPECIFIC GRAVITY 1.009 (1.000-1.030); UROBILINOGEN 0.2 MG/DL (0.2-1.0)
[2018-02-04 05:49] LABS: QUANTITATIVE HCG < 4.0 MIU/ML
[2018-02-04 05:49] LABS: BACTERIA RARE /HPF; EPITHELIAL CELLS RARE /HPF; HYALINE CASTS 0-5 /LPF; MUCUS TRACE /LPF; RED BLOOD CELLS 0-5 /HPF (0-5); UCUL ADDED? NO; WHITE BLOOD CELLS 0-5 /HPF (0-5)
[2018-02-04 06:13] LABS: PLATELET CLUMPS PRESENT - PLATELET COUNTS APPEARS DECREASED; PLATELET COUNT UNABLE TO REPORT K/uL (156-360)
[2018-02-04] MEDS ORDERED: REGLAN10 MG PO (06:50)
[2018-02-04 07:48] VITALS: BP 192/121
== END 2018-02-04 08:00 | disposition home or self-care (01) ==
LOC: EME 03:48
DX: B34.9 Viral infection, unspecified (principal); K29.00 Acute gastritis without bleeding; F11.23 Opioid dependence with withdrawal; N28.9 Disorder of kidney and ureter, unspecified; I12.0 Hypertensive chronic kidney disease with stage 5 chronic kidney disease or end stage renal disease; N18.6 End stage renal disease; Z99.2 Dependence on renal dialysis; M32.14 Glomerular disease in systemic lupus erythematosus; G43.909 Migraine, unspecified, not intractable, without status migrainosus; F17.200 Nicotine dependence, unspecified, uncomplicated; Z86.718 Personal history of other venous thrombosis and embolism; Z97.5 Presence of (intrauterine) contraceptive device
CPT/HCPCS: 71045; 80053; 81003; 83690; 84702; 85027; 99281; 99285; J2405; J3010; J7030; S0028

== ENCOUNTER 2018-02-05 23:51 | Emergency (ER) | payer OTHER ==
[~2018-02-05] VITALS: Ht 157.5 cm; Wt 64.8 kg
[~2018-02-05 23:51] MED LIST changes: +REGLAN10 MG PO
[2018-02-06 00:44] LABS: BASOPHIL (%) 0.6 % (0-1); BASOPHIL COUNT 0.1 K/uL (0-0.1); EOSINOPHIL (%) 8.7 % (0-5); EOSINOPHIL COUNT 0.7 K/uL (0-0.3); HEMATOCRIT 31.2 % (36.0-46.0); IMMATURE GRANULOCYTE (%) 0.4 % (0.0-0.7); LYMPHOCYTE (%) 29.5 % (15-42); LYMPHOCYTE COUNT 2.4 K/uL (1.0-2.8); MCH 26.2 PG (29.0-34.0); MCHC 32.1 G/DL (30.0-36.0); MCV 81.7 FL (83-99); MONOCYTE (%) 5.5 % (3-12); MONOCYTE COUNT 0.5 K/uL (0-0.8); NEUTROPHIL (%) 55.3 % (45-76); NEUTROPHIL COUNT 4.5 K/uL (1.8-6.4); RBC DIS.WIDTH-CV 15.5 % (11.8-14.6); RBC DIS.WIDTH-SD 45.9 % (39-53); RED BLOOD COUNT 3.82 M/uL (3.80-5.20); WHITE BLOOD COUNT 8.2 K/uL (4.1-10.2)
[2018-02-06 01:03] LABS: CHLORIDE 110 mEq/L (99-109); POTASSIUM 3.9 mEq/L (3.7-5.4); SODIUM 141 mEq/L (136-147)
[2018-02-06 01:05] LABS: GLUCOSE 97 mg/dL (70-99)
[2018-02-06 01:09] LABS: CREATININE 8.2 mg/dL (0.6-1.3); GFR ESTIMATE (CALCULATED) 6 mL/min/
[2018-02-06 01:10] LABS: UREA NITROGEN (BUN) 56 mg/dL (9-23)
[2018-02-06 01:30] LABS: PLATELET COUNT 94 K/uL (156-360)
[2018-02-06 02:30] VITALS: BP 205/100
== END 2018-02-06 02:31 | disposition home or self-care (01) ==
LOC: EME 23:51
PROVIDERS: Emergency Medicine
DX: N18.6 End stage renal disease (principal); Z99.2 Dependence on renal dialysis; M32.14 Glomerular disease in systemic lupus erythematosus; G43.909 Migraine, unspecified, not intractable, without status migrainosus; F17.200 Nicotine dependence, unspecified, uncomplicated; Z86.718 Personal history of other venous thrombosis and embolism; Z97.5 Presence of (intrauterine) contraceptive device
CPT/HCPCS: 80048; 85025; 93005; 99281; 99283

== ENCOUNTER 2018-02-20 12:49 | Emergency (ER) | payer OTHER ==
[~2018-02-20] VITALS: Ht 157.5 cm; Wt 68.4 kg
[2018-02-20 13:40] LABS: BASOPHIL (%) 0.8 % (0-1); BASOPHIL COUNT 0.1 K/uL (0-0.1); EOSINOPHIL (%) 8.2 % (0-5); EOSINOPHIL COUNT 0.6 K/uL (0-0.3); HEMATOCRIT 27.5 % (36.0-46.0); HEMOGLOBIN 9.2 G/DL (11.9-15.5); IMMATURE GRANULOCYTE (%) 0.4 % (0.0-0.7); LYMPHOCYTE (%) 22.9 % (15-42); LYMPHOCYTE COUNT 1.6 K/uL (1.0-2.8); MCH 26.7 PG (29.0-34.0); MCHC 33.5 G/DL (30.0-36.0); MCV 79.9 FL (83-99); MONOCYTE (%) 5.3 % (3-12); MONOCYTE COUNT 0.4 K/uL (0-0.8); NEUTROPHIL (%) 62.4 % (45-76); NEUTROPHIL COUNT 4.4 K/uL (1.8-6.4); PLATELET COUNT 87 K/uL (156-360); RBC DIS.WIDTH-CV 16.9 % (11.8-14.6); RED BLOOD COUNT 3.44 M/uL (3.80-5.20); WHITE BLOOD COUNT 7.1 K/uL (4.1-10.2)
[2018-02-20 13:48] LABS: ALBUMIN 3.6 g/dL (3.2-4.8); CHLORIDE 108 mEq/L (99-109); POTASSIUM 3.6 mEq/L (3.7-5.4); SODIUM 138 mEq/L (136-147)
[2018-02-20 13:49] LABS: MAGNESIUM 2.2 mg/dL (1.3-2.7)
[2018-02-20 13:51] LABS: GLUCOSE 125 mg/dL (70-99); TOTAL PROTEIN 6.1 g/dL (6.4-8.3)
[2018-02-20 13:52] LABS: TOTAL BILIRUBIN 0.6 mg/dL (0.0-1.0)
[2018-02-20 13:54] LABS: ALKALINE PHOSPHATASE 86 IU/L (3-129); CREATININE 10.4 mg/dL (0.6-1.3); GFR ESTIMATE (CALCULATED) 5 mL/min/; PHOSPHORUS 5.9 mg/dL (2.5-4.9)
[2018-02-20 13:55] LABS: UREA NITROGEN (BUN) 62 mg/dL (9-23)
[2018-02-20 13:56] LABS: AST (GOT) 9 IU/L (2-34)
[2018-02-20 13:57] LABS: ALT (GPT) 6 IU/L (3-49)
[2018-02-20 14:03] LABS: QUANTITATIVE HCG < 4.0 MIU/ML
[2018-02-20 17:18] LABS: HEPATITIS B SURFACE ANTIGEN Nonreactive
[2018-02-20 17:22] LABS: HEPATITIS B SURFACE ANTIBODY REACTIVE
[2018-02-20 18:54] VITALS: BP 174/103
== END 2018-02-20 18:56 | disposition home or self-care (01) ==
LOC: EME 12:49
PROVIDERS: Emergency Medicine; Internal Medicine Nephrology
DX: I12.0 Hypertensive chronic kidney disease with stage 5 chronic kidney disease or end stage renal disease (principal); N18.6 End stage renal disease; Z99.2 Dependence on renal dialysis; Z91.15 Patient's noncompliance with renal dialysis; D69.6 Thrombocytopenia, unspecified; M32.14 Glomerular disease in systemic lupus erythematosus; D64.9 Anemia, unspecified; Z86.718 Personal history of other venous thrombosis and embolism; Z72.0 Tobacco use
CPT/HCPCS: 80053; 81003; 83735; 84100; 84702; 85025; 86706; 87340; 99281; 99284

== ENCOUNTER → 2018-03-21 | Outpatient (CLI) | payer OTHER | END | disposition home or self-care (01) | LOC: AMB 08:30 | PROC: 02PYX3Z Removal of Infusion Device from Great Vessel, External Approach (ICD-10-PCS; principal; 2018-03-21) | DX: Z45.2 Encounter for adjustment and management of vascular access device (principal); N18.6 End stage renal disease ==

== ENCOUNTER 2018-04-09 21:43 | Inpatient (IN) | payer OTHER ==
[~2018-04-09] VITALS: Ht 157.5 cm; Wt 56.3 kg
[2018-04-09 22:39] LABS: CHLORIDE 99 mEq/L (99-109); POTASSIUM 4.4 mEq/L (3.7-5.4); SODIUM 131 mEq/L (136-147)
[2018-04-09 22:41] LABS: GLUCOSE 122 mg/dL (70-99); HEMATOCRIT 20.5 % (36.0-46.0); HEMOGLOBIN 7.1 G/DL (11.9-15.5); MCHC 34.6 G/DL (30.0-36.0); MCV 75.1 FL (83-99); NRBC (%) 0.1 /100 WBC (0-0); RBC DIS.WIDTH-CV 15.5 % (11.8-14.6); RED BLOOD COUNT 2.73 M/uL (3.80-5.20); TOTAL PROTEIN 6.1 g/dL (6.4-8.3); WHITE BLOOD COUNT 16.3 K/uL (4.1-10.2)
[2018-04-09 22:43] LABS: TOTAL BILIRUBIN 0.6 mg/dL (0.0-1.0)
[2018-04-09 22:44] LABS: ALKALINE PHOSPHATASE 103 IU/L (3-129)
[2018-04-09 22:45] LABS: CREATININE 14.7 mg/dL (0.6-1.3); GFR ESTIMATE (CALCULATED) 3 mL/min/
[2018-04-09 22:46] LABS: AST (GOT) 19 IU/L (2-34)
[2018-04-09 22:47] LABS: ALT (GPT) 9 IU/L (3-49)
[2018-04-09 22:56] LABS: QUANTITATIVE HCG < 4.0 MIU/ML
[2018-04-09 23:05] LABS: UREA NITROGEN (BUN) 136 mg/dL (9-23)
[2018-04-10] VITALS (12 sets, daily range): BP systolic 128–179; BP diastolic 81–100
[2018-04-10 00:24] LABS: PLAT.SUFFICIENCY DECREASED
[2018-04-10 06:49] LABS: PLATELET COUNT 80 K/uL (156-360)
[2018-04-10 10:21] LABS: BASOPHIL (%) 0.1 % (0-1); EOSINOPHIL (%) 0.1 % (0-5); IMMATURE GRANULOCYTE (%) 3.9 % (0.0-0.7); LYMPHOCYTE (%) 6.4 % (15-42); LYMPHOCYTE COUNT 0.9 K/uL (1.0-2.8); MCH 25.6 PG (29.0-34.0); MCHC 33.5 G/DL (30.0-36.0); MCV 76.2 FL (83-99); MONOCYTE (%) 3.1 % (3-12); MONOCYTE COUNT 0.4 K/uL (0-0.8); NEUTROPHIL (%) 86.4 % (45-76); NEUTROPHIL COUNT 11.8 K/uL (1.8-6.4); RBC DIS.WIDTH-CV 15.7 % (11.8-14.6); RBC DIS.WIDTH-SD 42.6 % (39-53); RED BLOOD COUNT 2.23 M/uL (3.80-5.20); WHITE BLOOD COUNT 13.7 K/uL (4.1-10.2)
[2018-04-10 10:22] LABS: HEMOGLOBIN 5.7 G/DL (11.9-15.5)
[2018-04-10 10:37] LABS: CHLORIDE 97 MEQ/L (99-109); CREATININE 14.9 MG/DL (0.6-1.3); GFR ESTIMATE (CALCULATED) 3 mL/min/; GLUCOSE 128 mg/dL (70-99); POTASSIUM 4.3 MEQ/L (3.7-5.4); SODIUM 130 MEQ/L (136-147)
[2018-04-10 10:45] LABS: PLAT.SUFFICIENCY DECREASED; PLATELET COUNT 66 K/uL (156-360); UREA NITROGEN (BUN) 137 mg/dL (9-23)
[2018-04-11] VITALS (7 sets, daily range): BP systolic 89–190; BP diastolic 44–118
[2018-04-11 06:23] LABS: ALBUMIN 2.7 G/DL (3.2-4.8); CHLORIDE 94 MEQ/L (99-109); GLUCOSE 102 mg/dL (70-99); PHOSPHORUS 6.9 mg/dL (2.5-4.9)
[2018-04-11 06:25] LABS: CREATININE 7.7 MG/DL (0.6-1.3); GFR ESTIMATE (CALCULATED) 6 mL/min/; SODIUM 137 MEQ/L (136-147); UREA NITROGEN (BUN) 61 mg/dL (9-23)
[2018-04-11 07:07] LABS: HEMATOCRIT 30.3 % (36.0-46.0); MCH 26.5 PG (29.0-34.0); NRBC (%) 0.9 /100 WBC (0-0); RBC DIS.WIDTH-CV 16.2 % (11.8-14.6); RBC DIS.WIDTH-SD 46.5 % (39-53); WHITE BLOOD COUNT 16.1 K/uL (4.1-10.2)
[2018-04-11 07:24] LABS: MCV 80.2 FL (83-99); RED BLOOD COUNT 3.78 M/uL (3.80-5.20)
[2018-04-11 07:26] LABS: ABS NEUTROPHIL COUNT 14.5; ANISOCYTOSIS 1+; BAND NEUTROPHILS 0.9 % (0-8.0); BASOPHILS 0.9 %; BURR CELLS 1+; EOSINOPHIL ABS CT 0; IMM.PLATELET FRACTION 11.1 (1-7); LYMPHOCYTES 4.4 % (15.0-45.0); METAMYELOCYTES 1.8 %; MICROCYTOSIS 1+; MONOCYTES 1.8 % (0-9.0); MYELOCYTES 0.9 %; NUCLEATED RBC'S 0.9; OVALOCYTES 1+; PLATELET CLUMPS PRESENT - PLATELET COUNT APPEARS DECREASED; PLATELET COUNT UNABLE TO REPORT K/uL (156-360); POIKILOCYTOSIS 2+; SCHISTOCYTES 1+; SEG.NEUTROPHILS 89.3 % (46.0-76.0)
[2018-04-12 02:48] VITALS: BP 166/100
[2018-04-12 14:48] LABS: HEPATITIS B SURFACE ANTIGEN Nonreactive
[2018-04-12 14:49] LABS: HEPATITIS C ANTIBODY Nonreactive
[2018-04-12 14:50] LABS: HEPATITIS B SURFACE ANTIBODY REACTIVE
== END 2018-04-12 02:58 | disposition left against medical advice (07) | DRG 640 ==
LOC: EME 21:43 → EDOF 04-10 04:00 → 4EAST 04-10 04:00 → ENRESERV 04-10 04:06 → CANRESERV 04-10 04:26 → EDOF 04-10 04:37 → ENRESERV 04-10 04:39 → 4EAST 04-10 05:34
PROVIDERS: Hospitalist; Internal Medicine Nephrology
PROC: 5A1D70Z Performance of Urinary Filtration, Intermittent, Less than 6 Hours Per Day (ICD-10-PCS; principal; 2018-04-10)
PROC: 30233N1 Transfusion of Nonautologous Red Blood Cells into Peripheral Vein, Percutaneous Approach (ICD-10-PCS; 2018-04-10)
DX: E87.2 Acidosis (principal); G93.41 Metabolic encephalopathy; E87.1 Hypo-osmolality and hyponatremia; E87.70 Fluid overload, unspecified; J18.9 Pneumonia, unspecified organism; I12.0 Hypertensive chronic kidney disease with stage 5 chronic kidney disease or end stage renal disease; N18.6 End stage renal disease; D69.6 Thrombocytopenia, unspecified; M32.14 Glomerular disease in systemic lupus erythematosus; R01.1 Cardiac murmur, unspecified; D63.1 Anemia in chronic kidney disease; F32.9 Major depressive disorder, single episode, unspecified; F17.200 Nicotine dependence, unspecified, uncomplicated; Z86.718 Personal history of other venous thrombosis and embolism; Z91.15 Patient's noncompliance with renal dialysis; Z99.2 Dependence on renal dialysis; Z91.14 Patient's other noncompliance with medication regimen
CPT/HCPCS: 71046; 71250; 72070; 73502; 78582; 80048; 80053; 80069; 81003; 83605; 84145 90; 84702; 85025; 85027; 86706; 86803; 86850; 86900; 86901; 86920; 87040; 87070; 87205; 87340; 87449; 87641; 93970; 94640; 94799; A9540; A9567; J0360; J0456; J0696; J0881; J1170; J1650; J2270; J2405; J3010; P9016; Q0169

== ENCOUNTER 2018-04-30 18:51 | Inpatient (IN) | payer OTHER ==
[~2018-04-30] VITALS: Ht 157.5 cm; Wt 50.9 kg
[2018-04-30 20:05] LABS: HEMOGLOBIN 7.4 G/DL (11.9-15.5); MCH 27.5 PG (29.0-34.0); MCHC 33.6 G/DL (30.0-36.0); MCV 81.8 FL (83-99); PLATELET COUNT 159 K/uL (156-360); RBC DIS.WIDTH-CV 16.3 % (11.8-14.6); RBC DIS.WIDTH-SD 46.7 % (39-53); RED BLOOD COUNT 2.69 M/uL (3.80-5.20); WHITE BLOOD COUNT 14.8 K/uL (4.1-10.2)
[2018-04-30 20:09] LABS: CHLORIDE 91 mEq/L (99-109); POTASSIUM 4.8 mEq/L (3.7-5.4); SODIUM 130 mEq/L (136-147)
[2018-04-30 20:11] LABS: GLUCOSE 146 mg/dL (70-99); TOTAL PROTEIN 6.4 g/dL (6.4-8.3)
[2018-04-30 20:13] LABS: TOTAL BILIRUBIN 0.6 mg/dL (0.0-1.0)
[2018-04-30 20:14] LABS: ALKALINE PHOSPHATASE 115 IU/L (3-129)
[2018-04-30 20:15] LABS: CREATININE 13.7 mg/dL (0.6-1.3); GFR ESTIMATE (CALCULATED) 3 mL/min/
[2018-04-30 20:16] LABS: AST (GOT) 14 IU/L (2-34)
[2018-04-30 20:18] LABS: ALT (GPT) 18 IU/L (3-49)
[2018-04-30 20:24] LABS: QUANTITATIVE HCG < 4.0 MIU/ML
[2018-04-30 20:30] LABS: UREA NITROGEN (BUN) 174 mg/dL (9-23)
[2018-04-30] MEDS ORDERED: PRAVACHOL40 MG PO (23:07)
[2018-04-30] MEDS ORDERED: OXYMORPHONE HCL30 MG PO (23:08)
[2018-04-30] MEDS ORDERED: RENAGEL800 MG PO (23:09)
[2018-04-30] MEDS ORDERED: NEPHRO-VITE,1 TABLET PO (23:09)
[2018-05-01] VITALS (11 sets, daily range): BP systolic 133–168; BP diastolic 87–97
[2018-05-01 01:29] LABS: BASE EXCESS -8.7 mEq/L (-3 to +3); BICARBONATE 16.2 mEq/L (22-26); CARBOXY HGB 2.2 % (0-5); COMMENTS - BLOOD GASES C+A+; DEVICE NO DEVICE; FI02 21 %; METHEMOGLOBIN 1.7 % (0-1.5); PCO2 30 mm Hg (35-45); PO2 65 mm Hg (80-100); SITE RR; pH 7.34 (7.35-7.45)
[2018-05-01 03:35] LABS: IRON 49 MCG/DL (35-150); TRANSFERRIN (TIBC) 139.5 mg/dL (215-380); TRANSFERRIN SATUR. 35 % (20-55)
[2018-05-01 03:40] LABS: TROP-I INTERPRETATION NEGATIVE; TROPONIN-I 0.09 ng/mL (0.0-0.30)
[2018-05-01 08:33] LABS: MCH 26.4 PG (29.0-34.0); MCHC 32.4 G/DL (30.0-36.0); MCV 81.7 FL (83-99); RBC DIS.WIDTH-CV 16.3 % (11.8-14.6); RBC DIS.WIDTH-SD 46.7 % (39-53); WHITE BLOOD COUNT 9.6 K/uL (4.1-10.2)
[2018-05-01 08:38] LABS: TROP-I INTERPRETATION NEGATIVE; TROPONIN-I 0.08 ng/mL (0.0-0.30)
[2018-05-01 08:41] LABS: PLAT.SUFFICIENCY DECREASED
[2018-05-01 08:42] LABS: RED BLOOD COUNT 2.08 M/uL (3.80-5.20)
[2018-05-01 08:43] LABS: HEMOGLOBIN 5.5 G/DL (11.9-15.5); PLATELET COUNT 93 K/uL (156-360)
[2018-05-01 08:48] LABS: CHLORIDE 89 MEQ/L (99-109); CREATININE 12.8 MG/DL (0.6-1.3); GFR ESTIMATE (CALCULATED) 4 mL/min/; GLUCOSE 162 mg/dL (70-99); POTASSIUM 4.3 MEQ/L (3.7-5.4); SODIUM 127 MEQ/L (136-147); UREA NITROGEN (BUN) 171 mg/dL (9-23)
[2018-05-01 09:15] LABS: ALBUMIN 2.6 G/DL (3.2-4.8); PHOSPHORUS 10.4 mg/dL (2.5-4.9)
[2018-05-01 11:32] LABS: HEMATOCRIT 18.8 % (36.0-46.0); MCV 79.3 FL (83-99)
[2018-05-01 11:40] LABS: HEMOGLOBIN 6.3 G/DL (11.9-15.5)
[2018-05-01 20:58] LABS: HEMOGLOBIN 6.6 G/DL (11.9-15.5)
[2018-05-02 03:30] VITALS: BP 134/89
[2018-05-02 06:08] LABS: BASOPHIL (%) 0.2 % (0-1); EOSINOPHIL (%) 1.4 % (0-5); EOSINOPHIL COUNT 0.1 K/uL (0-0.3); HEMATOCRIT 24.1 % (36.0-46.0); IMMATURE GRANULOCYTE (%) 2.2 % (0.0-0.7); LYMPHOCYTE (%) 8.7 % (15-42); LYMPHOCYTE COUNT 0.8 K/uL (1.0-2.8); MCH 28.8 PG (29.0-34.0); MCHC 33.2 G/DL (30.0-36.0); MCV 86.7 FL (83-99); MONOCYTE COUNT 0.6 K/uL (0-0.8); NEUTROPHIL (%) 81.5 % (45-76); NEUTROPHIL COUNT 7.7 K/uL (1.8-6.4); RBC DIS.WIDTH-CV 16.7 % (11.8-14.6); RBC DIS.WIDTH-SD 50.4 % (39-53); WHITE BLOOD COUNT 9.4 K/uL (4.1-10.2)
[2018-05-02 06:09] LABS: RED BLOOD COUNT 2.78 M/uL (3.80-5.20)
[2018-05-02 06:14] LABS: ALBUMIN 2.4 G/DL (3.2-4.8); ALKALINE PHOSPHATASE 74 IU/L (3-129); ALT (GPT) 12 IU/L (3-49); AST (GOT) 12 IU/L (2-34); CHLORIDE 94 MEQ/L (99-109); MAGNESIUM 1.8 mg/dl (1.3-2.7); POTASSIUM 3.5 MEQ/L (3.7-5.4); SODIUM 133 MEQ/L (136-147); TOTAL BILIRUBIN 0.7 MG/DL (0.0-1.0); TOTAL PROTEIN 5.1 G/DL (6.4-8.3)
[2018-05-02 06:41] LABS: CREATININE 6.7 MG/DL (0.6-1.3); GFR ESTIMATE (CALCULATED) 7 mL/min/; GLUCOSE 94 mg/dL (70-99); PHOSPHORUS 6.4 mg/dL (2.5-4.9); UREA NITROGEN (BUN) 69 mg/dL (9-23)
[2018-05-02 06:51] LABS: IMM.PLATELET FRACTION 11.6 (1-7); PLAT.SUFFICIENCY DECREASED
[2018-05-02 06:53] LABS: PLATELET COUNT 55 K/uL (156-360)
[2018-05-02 07:16] VITALS: BP 150/100
[2018-05-02 12:17] VITALS: BP 138/92
[2018-05-02 13:14] LABS: HEMATOCRIT 26.6 % (36.0-46.0); HEMOGLOBIN 8.9 G/DL (11.9-15.5); MCV 85.3 FL (83-99)
[2018-05-02 15:57] VITALS: BP 159/106
[2018-05-02 19:20] VITALS: BP 127/87
[2018-05-02 20:45] LABS: BENZODIAZEPINES, URINE SCREEN Negative (200 ng/mL)
[2018-05-02 21:02] LABS: HEMATOCRIT 26.3 % (36.0-46.0); HEMOGLOBIN 8.7 G/DL (11.9-15.5); MCV 86.8 FL (83-99)
[2018-05-02 22:30] VITALS: BP 133/96
[2018-05-03 03:48] VITALS: BP 130/70
[2018-05-03 05:31] LABS: BASOPHIL (%) 0.3 % (0-1); EOSINOPHIL (%) 2.7 % (0-5); EOSINOPHIL COUNT 0.3 K/uL (0-0.3); HEMATOCRIT 26.2 % (36.0-46.0); HEMOGLOBIN 8.4 G/DL (11.9-15.5); IMMATURE GRANULOCYTE (%) 2.1 % (0.0-0.7); LYMPHOCYTE (%) 14.5 % (15-42); LYMPHOCYTE COUNT 1.4 K/uL (1.0-2.8); MCHC 32.1 G/DL (30.0-36.0); MCV 87.3 FL (83-99); MONOCYTE (%) 7.7 % (3-12); MONOCYTE COUNT 0.8 K/uL (0-0.8); NEUTROPHIL (%) 72.7 % (45-76); NEUTROPHIL COUNT 7.1 K/uL (1.8-6.4); RBC DIS.WIDTH-CV 16.6 % (11.8-14.6); RBC DIS.WIDTH-SD 50.2 % (39-53); WHITE BLOOD COUNT 9.8 K/uL (4.1-10.2)
[2018-05-03 05:39] LABS: CHLORIDE 96 MEQ/L (99-109); GFR ESTIMATE (CALCULATED) 13 mL/min/; GLUCOSE 103 mg/dL (70-99); POTASSIUM 3.5 MEQ/L (3.7-5.4); SODIUM 136 MEQ/L (136-147); UREA NITROGEN (BUN) 35 mg/dL (9-23)
[2018-05-03 05:41] LABS: CREATININE 4.2 MG/DL (0.6-1.3)
[2018-05-03 06:29] LABS: IMM.PLATELET FRACTION 12.6 (1-7); PLAT.SUFFICIENCY VERY DECREASED
[2018-05-03 07:23] LABS: PLATELET COUNT 31 K/uL (156-360)
[2018-05-03 08:09] VITALS: BP 133/92
[2018-05-03 11:41] VITALS: BP 137/96
[2018-05-03 17:34] VITALS: BP 143/97
[2018-05-03 19:08] VITALS: BP 131/90
[2018-05-03 22:55] VITALS: BP 133/86
[2018-05-04 03:36] VITALS: BP 138/70
[2018-05-04 07:30] VITALS: BP 150/100
[2018-05-04 11:46] VITALS: BP 134/91
[2018-05-04 15:45] VITALS: BP 160/98
[2018-05-04 19:55] VITALS: BP 137/96
[2018-05-04 22:42] VITALS: BP 147/98
[2018-05-05 03:40] VITALS: BP 128/85
[2018-05-05 05:38] LABS: BASOPHIL COUNT 0.1 K/uL (0-0.1); EOSINOPHIL (%) 4.1 % (0-5); EOSINOPHIL COUNT 0.4 K/uL (0-0.3); HEMATOCRIT 24.6 % (36.0-46.0); HEMOGLOBIN 7.7 G/DL (11.9-15.5); IMM.PLATELET FRACTION 8.8 (1-7); IMMATURE GRANULOCYTE (%) 1.9 % (0.0-0.7); LYMPHOCYTE (%) 20.8 % (15-42); LYMPHOCYTE COUNT 2.1 K/uL (1.0-2.8); MCH 28.2 PG (29.0-34.0); MCHC 31.3 G/DL (30.0-36.0); MCV 90.1 FL (83-99); MONOCYTE (%) 6.9 % (3-12); MONOCYTE COUNT 0.7 K/uL (0-0.8); NEUTROPHIL (%) 65.3 % (45-76); NEUTROPHIL COUNT 6.6 K/uL (1.8-6.4); PLATELET COUNT 33 K/uL (156-360); RBC DIS.WIDTH-CV 16.6 % (11.8-14.6); RBC DIS.WIDTH-SD 53.1 % (39-53); RED BLOOD COUNT 2.73 M/uL (3.80-5.20); WHITE BLOOD COUNT 10.1 K/uL (4.1-10.2)
[2018-05-05 05:40] LABS: CHLORIDE 98 MEQ/L (99-109); CREATININE 4.7 MG/DL (0.6-1.3); GFR ESTIMATE (CALCULATED) 11 mL/min/; GLUCOSE 120 mg/dL (70-99); POTASSIUM 3.8 MEQ/L (3.7-5.4); SODIUM 137 MEQ/L (136-147); UREA NITROGEN (BUN) 38 mg/dL (9-23)
[2018-05-05 06:24] LABS: PLAT.SUFFICIENCY VERY DECREASED
[2018-05-05 08:15] VITALS: BP 138/68
[2018-05-05 10:56] VITALS: BP 133/91
[2018-05-05 15:10] VITALS: BP 143/93
[2018-05-05 19:06] VITALS: BP 127/76
[2018-05-06 00:08] VITALS: BP 130/82
[2018-05-06 03:31] VITALS: BP 126/75
[2018-05-06 06:05] LABS: HEMATOCRIT 23.4 % (36.0-46.0); HEMOGLOBIN 7.3 G/DL (11.9-15.5); MCHC 31.2 G/DL (30.0-36.0); MCV 89.7 FL (83-99); RBC DIS.WIDTH-CV 16.6 % (11.8-14.6); RBC DIS.WIDTH-SD 53.1 % (39-53); RED BLOOD COUNT 2.61 M/uL (3.80-5.20); WHITE BLOOD COUNT 9.7 K/uL (4.1-10.2)
[2018-05-06 06:19] LABS: CHLORIDE 97 MEQ/L (99-109); GFR ESTIMATE (CALCULATED) 9 mL/min/; GLUCOSE 113 mg/dL (70-99); POTASSIUM 3.9 MEQ/L (3.7-5.4); SODIUM 134 MEQ/L (136-147); UREA NITROGEN (BUN) 50 mg/dL (9-23)
[2018-05-06 06:21] LABS: CREATININE 5.8 MG/DL (0.6-1.3)
[2018-05-06 06:35] LABS: BASOPHIL (%) 0.8 % (0-1); BASOPHIL COUNT 0.1 K/uL (0-0.1); EOSINOPHIL (%) 3.6 % (0-5); EOSINOPHIL COUNT 0.4 K/uL (0-0.3); IMMATURE GRANULOCYTE (%) 1.7 % (0.0-0.7); LYMPHOCYTE (%) 17.2 % (15-42); LYMPHOCYTE COUNT 1.7 K/uL (1.0-2.8); MONOCYTE (%) 7.5 % (3-12); MONOCYTE COUNT 0.7 K/uL (0-0.8); NEUTROPHIL (%) 69.2 % (45-76); NEUTROPHIL COUNT 6.7 K/uL (1.8-6.4)
[2018-05-06 07:10] LABS: ANISOCYTOSIS 1+; IMM.PLATELET FRACTION 7.3 (1-7); PLAT.SUFFICIENCY DECREASED; PLATELET COUNT 36 K/uL (156-360); POIKILOCYTOSIS 1+
[2018-05-06 12:30] LABS: HEMATOCRIT 28.1 % (36.0-46.0); HEMOGLOBIN 8.8 G/DL (11.9-15.5); MCV 90.1 FL (83-99)
[2018-05-06 16:46] VITALS: BP 121/78
[2018-05-06 19:32] VITALS: BP 103/67
[2018-05-07 00:48] VITALS: BP 105/74
[2018-05-07 03:52] VITALS: BP 103/58
[2018-05-07 06:40] LABS: BASOPHIL (%) 1.1 % (0-1); BASOPHIL COUNT 0.1 K/uL (0-0.1); EOSINOPHIL (%) 2.9 % (0-5); EOSINOPHIL COUNT 0.3 K/uL (0-0.3); HEMATOCRIT 27.5 % (36.0-46.0); HEMOGLOBIN 8.4 G/DL (11.9-15.5); IMMATURE GRANULOCYTE (%) 1.8 % (0.0-0.7); LYMPHOCYTE (%) 18.2 % (15-42); MCH 28.4 PG (29.0-34.0); MCHC 30.5 G/DL (30.0-36.0); MCV 92.9 FL (83-99); MONOCYTE (%) 7.2 % (3-12); MONOCYTE COUNT 0.8 K/uL (0-0.8); NEUTROPHIL (%) 68.8 % (45-76); NEUTROPHIL COUNT 7.4 K/uL (1.8-6.4); RBC DIS.WIDTH-CV 16.6 % (11.8-14.6); RBC DIS.WIDTH-SD 55.4 % (39-53); RED BLOOD COUNT 2.96 M/uL (3.80-5.20); WHITE BLOOD COUNT 10.7 K/uL (4.1-10.2)
[2018-05-07 07:00] LABS: CHLORIDE 100 MEQ/L (99-109); GLUCOSE 92 mg/dL (70-99); POTASSIUM 3.9 MEQ/L (3.7-5.4); SODIUM 138 MEQ/L (136-147); UREA NITROGEN (BUN) 32 mg/dL (9-23)
[2018-05-07 07:02] LABS: GFR ESTIMATE (CALCULATED) 14 mL/min/
[2018-05-07 07:20] LABS: ABS NEUTROPHIL COUNT 7.9; ANISOCYTOSIS 1+; ATYPICAL LYMPHOCYTE 2.6 %; BAND NEUTROPHILS 2.6 % (0-8.0); BASOPH.STIPPLING 1+; BASOPHILS 2.6 %; EOSINOPHIL ABS CT 0.4; EOSINOPHILS 3.5 % (0-5.0); HEMATOLOGY COMMENT 1 SN; LYMPHOCYTES 9.6 % (15.0-45.0); MACROCYTES 1+; METAMYELOCYTES 0.9 %; MONOCYTES 6.9 % (0-9.0); OVALOCYTES 1+; PLAT.SUFFICIENCY DECREASED; PLATELET COUNT 44 K/uL (156-360); POIKILOCYTOSIS 1+; SEG.NEUTROPHILS 71.3 % (46.0-76.0)
[2018-05-07 07:26] VITALS: BP 120/76
[2018-05-07 15:18] LABS: Heparin Induced Plt Ab Negative (Negative)
[2018-05-07 16:18] VITALS: BP 117/79
[2018-05-07 17:09] LABS: UFH SRA Result Negative (Negative)
[2018-05-07 21:29] VITALS: BP 124/98
[2018-05-08] VITALS (11 sets, daily range): BP systolic 106–144; BP diastolic 66–78
[2018-05-08 05:49] LABS: BASOPHIL (%) 0.8 % (0-1); BASOPHIL COUNT 0.1 K/uL (0-0.1); EOSINOPHIL (%) 2.8 % (0-5); EOSINOPHIL COUNT 0.3 K/uL (0-0.3); HEMATOCRIT 24.2 % (36.0-46.0); HEMOGLOBIN 7.2 G/DL (11.9-15.5); IMMATURE GRANULOCYTE (%) 1.8 % (0.0-0.7); LYMPHOCYTE (%) 21.5 % (15-42); LYMPHOCYTE COUNT 1.9 K/uL (1.0-2.8); MCH 27.5 PG (29.0-34.0); MCHC 29.8 G/DL (30.0-36.0); MCV 92.4 FL (83-99); MONOCYTE (%) 9.1 % (3-12); MONOCYTE COUNT 0.8 K/uL (0-0.8); NEUTROPHIL COUNT 5.7 K/uL (1.8-6.4); RBC DIS.WIDTH-CV 16.4 % (11.8-14.6); RBC DIS.WIDTH-SD 54.4 % (39-53); RED BLOOD COUNT 2.62 M/uL (3.80-5.20); WHITE BLOOD COUNT 8.9 K/uL (4.1-10.2)
[2018-05-08 06:13] LABS: CHLORIDE 101 MEQ/L (99-109); GFR ESTIMATE (CALCULATED) 9 mL/min/; GLUCOSE 103 mg/dL (70-99); POTASSIUM 4.6 MEQ/L (3.7-5.4); SODIUM 137 MEQ/L (136-147); UREA NITROGEN (BUN) 48 mg/dL (9-23)
[2018-05-08 06:15] LABS: CREATININE 5.5 MG/DL (0.6-1.3)
[2018-05-08 06:27] LABS: PLAT.SUFFICIENCY VERY DECREASED; PLATELET COUNT 46 K/uL (156-360)
[2018-05-08] MEDS ORDERED: KEFLEX500 MG PO (09:18)
[2018-05-08 11:03] LABS: HEMATOCRIT 24.7 % (36.0-46.0); HEMOGLOBIN 7.7 G/DL (11.9-15.5); MCV 90.5 FL (83-99)
[2018-05-09 00:23] VITALS: BP 137/87
[2018-05-09 03:45] VITALS: BP 108/63
[2018-05-09 06:49] LABS: BASOPHIL (%) 0.9 % (0-1); BASOPHIL COUNT 0.1 K/uL (0-0.1); EOSINOPHIL (%) 2.1 % (0-5); EOSINOPHIL COUNT 0.2 K/uL (0-0.3); HEMATOCRIT 26.9 % (36.0-46.0); HEMOGLOBIN 8.3 G/DL (11.9-15.5); IMMATURE GRANULOCYTE (%) 1.6 % (0.0-0.7); LYMPHOCYTE (%) 18.9 % (15-42); MCH 28.1 PG (29.0-34.0); MCHC 30.9 G/DL (30.0-36.0); MCV 91.2 FL (83-99); MONOCYTE (%) 8.4 % (3-12); MONOCYTE COUNT 0.9 K/uL (0-0.8); NEUTROPHIL (%) 68.1 % (45-76); NEUTROPHIL COUNT 7.2 K/uL (1.8-6.4); RBC DIS.WIDTH-CV 16.8 % (11.8-14.6); RBC DIS.WIDTH-SD 54.7 % (39-53); RED BLOOD COUNT 2.95 M/uL (3.80-5.20); WHITE BLOOD COUNT 10.6 K/uL (4.1-10.2)
[2018-05-09 07:05] LABS: CHLORIDE 102 MEQ/L (99-109); GFR ESTIMATE (CALCULATED) 16 mL/min/; GLUCOSE 87 mg/dL (70-99); POTASSIUM 4.6 MEQ/L (3.7-5.4); SODIUM 140 MEQ/L (136-147); UREA NITROGEN (BUN) 36 mg/dL (9-23)
[2018-05-09 07:06] LABS: CREATININE 3.5 MG/DL (0.6-1.3)
[2018-05-09 07:14] VITALS: BP 130/85
[2018-05-09 07:14] LABS: PLAT.SUFFICIENCY DECREASED; PLATELET COUNT 54 K/uL (156-360)
[2018-05-09 11:17] VITALS: BP 120/76
[2018-05-09 16:09] VITALS: BP 111/78
== END 2018-05-09 19:08 | disposition home or self-care (01) | DRG 291 ==
LOC: EME 18:51 → 4EAST 05-01 01:54 → EDOF 05-01 01:54 → 5SOUTH 05-01 01:54 → ENRESERV 05-01 01:56 → 4EAST 05-01 03:55 → ENRESERV 05-05 08:31 → 5SOUTH 05-05 10:35
PROVIDERS: Hospitalist; Internal Medicine Hematology & Oncology; Internal Medicine Nephrology; Physician Assistant Medical; Student in an Organized Health Care Education/Training Program
PROC: 30233N1 Transfusion of Nonautologous Red Blood Cells into Peripheral Vein, Percutaneous Approach (ICD-10-PCS; principal; 2018-05-01)
DX: I13.2 Hypertensive heart and chronic kidney disease with heart failure and with stage 5 chronic kidney disease, or end stage renal disease (principal); I50.1 Left ventricular failure, unspecified; E87.79 Other fluid overload; N18.6 End stage renal disease; M32.14 Glomerular disease in systemic lupus erythematosus; G93.41 Metabolic encephalopathy; I50.9 Heart failure, unspecified; G89.4 Chronic pain syndrome; G43.909 Migraine, unspecified, not intractable, without status migrainosus; D63.1 Anemia in chronic kidney disease; F32.9 Major depressive disorder, single episode, unspecified; L03.115 Cellulitis of right lower limb; F17.210 Nicotine dependence, cigarettes, uncomplicated; R63.4 Abnormal weight loss; E87.2 Acidosis; D69.6 Thrombocytopenia, unspecified; E87.1 Hypo-osmolality and hyponatremia; R63.6 Underweight; M79.89 Other specified soft tissue disorders; M25.50 Pain in unspecified joint; L03.116 Cellulitis of left lower limb; I05.2 Rheumatic mitral stenosis with insufficiency; G93.49 Other encephalopathy; Z91.15 Patient's noncompliance with renal dialysis; Z99.2 Dependence on renal dialysis; Z86.718 Personal history of other venous thrombosis and embolism; Z91.19 Patient's noncompliance with other medical treatment and regimen; Z68.1 Body mass index [BMI] 19.9 or less, adult
CPT/HCPCS: 36600; 71046; 72070; 73590; 74176; 80048; 80053; 80069; 80202; 80306 90; 81003; 82272; 82607; 82728; 82746; 83540; 83605; 83735; 83880; 84100; 84466; 84484; 84702; 85014; 85018; 85025; 85027; 86022 90; 86850; 86870; 86880; 86885; 86900; 86901; 86904; 86905; 86906; 86920; 87040; 87641; 93306; 93970; 99281; 99285; J0690; J0696; J0881; J1170; J1644; J1940; J2150; J2405; J2543; J3010; J3370; J7050; P9016; Q0177

== ENCOUNTER 2018-05-13 07:54 | Inpatient (IN) | payer OTHER ==
[~2018-05-13] VITALS: Ht 157.5 cm; Wt 60.8 kg
[~2018-05-13 07:54] MED LIST changes: +KEFLEX500 MG PO; +PRAVACHOL40 MG PO
[2018-05-13 09:02] LABS: INTER. NORMALIZED RATIO 1.1
[2018-05-13 09:04] LABS: PTT 53.8 SEC (25-37)
[2018-05-13 09:08] LABS: ALBUMIN 3.4 g/dL (3.2-4.8); CHLORIDE 100 mEq/L (99-109); SODIUM 138 mEq/L (136-147)
[2018-05-13 09:09] LABS: HEMATOCRIT 29.5 % (36.0-46.0); HEMOGLOBIN 9.2 G/DL (11.9-15.5); MCH 28.7 PG (29.0-34.0); MCHC 31.2 G/DL (30.0-36.0); MCV 91.9 FL (83-99); RBC DIS.WIDTH-CV 16.8 % (11.8-14.6); RBC DIS.WIDTH-SD 54.9 % (39-53); RED BLOOD COUNT 3.21 M/uL (3.80-5.20)
[2018-05-13 09:10] LABS: GLUCOSE 96 mg/dL (70-99); TOTAL PROTEIN 6.8 g/dL (6.4-8.3)
[2018-05-13 09:12] LABS: TOTAL BILIRUBIN 0.4 mg/dL (0.0-1.0)
[2018-05-13 09:14] LABS: ALKALINE PHOSPHATASE 117 IU/L (3-129); GFR ESTIMATE (CALCULATED) 9 mL/min/
[2018-05-13 09:16] LABS: AST (GOT) 29 IU/L (2-34); CREATININE 5.8 mg/dL (0.6-1.3); POTASSIUM 7.2 mEq/L (3.7-5.4); UREA NITROGEN (BUN) 69 mg/dL (9-23)
[2018-05-13 09:17] LABS: ALT (GPT) < 3 IU/L (3-49)
[2018-05-13] MEDS ORDERED: ADALAT CC 30 MG30 MG PO (09:23)
[2018-05-13 10:06] LABS: IMM.PLATELET FRACTION 9.8 (1-7); PLAT.SUFFICIENCY DECREASED; PLATELET COUNT 41 K/uL (156-360)
[2018-05-13 14:30] VITALS: BP 119/71
[2018-05-13 15:59] VITALS: BP 124/68
[2018-05-13 21:55] VITALS: BP 101/57
[2018-05-13 23:44] VITALS: BP 102/63
[2018-05-14 03:08] VITALS: BP 110/58
[2018-05-14 03:52] LABS: BENZODIAZEPINES, URINE SCREEN Negative (200 ng/mL)
[2018-05-14 05:56] LABS: HEMATOCRIT 24.5 % (36.0-46.0); HEMOGLOBIN 7.5 G/DL (11.9-15.5); MCH 27.6 PG (29.0-34.0); MCHC 30.6 G/DL (30.0-36.0); MCV 90.1 FL (83-99); RBC DIS.WIDTH-CV 16.9 % (11.8-14.6); RBC DIS.WIDTH-SD 54.3 % (39-53); RED BLOOD COUNT 2.72 M/uL (3.80-5.20); WHITE BLOOD COUNT 6.6 K/uL (4.1-10.2)
[2018-05-14 06:09] LABS: CHLORIDE 97 MEQ/L (99-109); GLUCOSE 94 mg/dL (70-99); SODIUM 137 MEQ/L (136-147); UREA NITROGEN (BUN) 36 mg/dL (9-23)
[2018-05-14 06:12] LABS: CREATININE 3.6 MG/DL (0.6-1.3); GFR ESTIMATE (CALCULATED) 15 mL/min/; POTASSIUM 5.2 MEQ/L (3.7-5.4)
[2018-05-14 06:27] LABS: IMM.PLATELET FRACTION 6.6 (1-7); PLAT.SUFFICIENCY DECREASED; PLATELET COUNT 41 K/uL (156-360)
[2018-05-14 07:37] VITALS: BP 121/77
[2018-05-14 12:25] VITALS: BP 125/77
[2018-05-14] MEDS ORDERED: CEPHALEXIN500 MG PO (12:57)
[2018-05-14 16:14] VITALS: BP 123/76
[2018-05-14 23:17] VITALS: BP 100/56
[2018-05-15 04:22] VITALS: BP 108/60
[2018-05-15 06:12] LABS: CHLORIDE 99 MEQ/L (99-109); GFR ESTIMATE (CALCULATED) 11 mL/min/; GLUCOSE 97 mg/dL (70-99); SODIUM 137 MEQ/L (136-147); UREA NITROGEN (BUN) 49 mg/dL (9-23)
[2018-05-15 06:16] LABS: CREATININE 4.9 MG/DL (0.6-1.3)
[2018-05-15 06:39] LABS: BASOPHIL (%) 1.4 % (0-1); BASOPHIL COUNT 0.1 K/uL (0-0.1); EOSINOPHIL (%) 4.1 % (0-5); EOSINOPHIL COUNT 0.3 K/uL (0-0.3); HEMATOCRIT 25.4 % (36.0-46.0); HEMOGLOBIN 7.7 G/DL (11.9-15.5); IMMATURE GRANULOCYTE (%) 0.3 % (0.0-0.7); LYMPHOCYTE (%) 28.5 % (15-42); LYMPHOCYTE COUNT 1.8 K/uL (1.0-2.8); MCH 27.7 PG (29.0-34.0); MCHC 30.3 G/DL (30.0-36.0); MCV 91.4 FL (83-99); MONOCYTE COUNT 0.6 K/uL (0-0.8); NEUTROPHIL (%) 56.7 % (45-76); NEUTROPHIL COUNT 3.6 K/uL (1.8-6.4); RBC DIS.WIDTH-CV 16.7 % (11.8-14.6); RBC DIS.WIDTH-SD 55.2 % (39-53); RED BLOOD COUNT 2.78 M/uL (3.80-5.20); WHITE BLOOD COUNT 6.4 K/uL (4.1-10.2)
[2018-05-15 07:23] VITALS: BP 111/63
[2018-05-15 07:50] LABS: IMM.PLATELET FRACTION 5.4 (1-7); PLAT.SUFFICIENCY DECREASED; PLATELET COUNT 52 K/uL (156-360)
== END 2018-05-15 13:00 | disposition home health service (06) | DRG 82 ==
LOC: EME 07:54 → EDOF 09:43 → 4EAST 09:43 → ENRESERV 09:44 → 4EAST 11:12
PROVIDERS: Emergency Medicine; Hospitalist; Internal Medicine Nephrology
DX: S06.5X9A Traumatic subdural hemorrhage with loss of consciousness of unspecified duration, initial encounter (principal); E87.5 Hyperkalemia; L03.116 Cellulitis of left lower limb; I12.0 Hypertensive chronic kidney disease with stage 5 chronic kidney disease or end stage renal disease; N18.6 End stage renal disease; M32.14 Glomerular disease in systemic lupus erythematosus; M32.9 Systemic lupus erythematosus, unspecified; D69.59 Other secondary thrombocytopenia; I05.2 Rheumatic mitral stenosis with insufficiency; I27.20 Pulmonary hypertension, unspecified; R78.1 Finding of opiate drug in blood; R78.2 Finding of cocaine in blood; D63.1 Anemia in chronic kidney disease; F32.9 Major depressive disorder, single episode, unspecified; W18.30XA Fall on same level, unspecified, initial encounter; F17.210 Nicotine dependence, cigarettes, uncomplicated; Y92.009 Unspecified place in unspecified non-institutional (private) residence as the place of occurrence of the external cause; Z91.15 Patient's noncompliance with renal dialysis; Z91.19 Patient's noncompliance with other medical treatment and regimen; Z86.718 Personal history of other venous thrombosis and embolism; Z99.2 Dependence on renal dialysis
CPT/HCPCS: 70450; 72100; 80048; 80053; 80306 90; 85025; 85027; 85610; 85730; 93005; 99281; 99285; J0881; J2270

== ENCOUNTER 2018-05-19 17:03 | Inpatient (IN) | payer OTHER ==
[~2018-05-19] VITALS: Ht 157.5 cm; Wt 60.5 kg
[~2018-05-19 17:03] MED LIST changes: +ADALAT CC 30 MG30 MG PO; +CEPHALEXIN500 MG PO
[2018-05-19 18:18] LABS: HEMATOCRIT 27.5 % (36.0-46.0); HEMOGLOBIN 8.4 G/DL (11.9-15.5); MCH 27.7 PG (29.0-34.0); MCHC 30.5 G/DL (30.0-36.0); MCV 90.8 FL (83-99); RBC DIS.WIDTH-CV 16.4 % (11.8-14.6); RBC DIS.WIDTH-SD 53.1 % (39-53); RED BLOOD COUNT 3.03 M/uL (3.80-5.20); WHITE BLOOD COUNT 8.2 K/uL (4.1-10.2)
[2018-05-19 18:19] LABS: PLATELET COUNT 82 K/uL (156-360)
[2018-05-19 18:26] LABS: ALBUMIN 3.2 g/dL (3.2-4.8)
[2018-05-19 18:27] LABS: CHLORIDE 98 mEq/L (99-109); SODIUM 137 mEq/L (136-147)
[2018-05-19 18:28] LABS: INTER. NORMALIZED RATIO 1.2
[2018-05-19 18:29] LABS: GLUCOSE 103 mg/dL (70-99); TOTAL PROTEIN 6.2 g/dL (6.4-8.3)
[2018-05-19 18:31] LABS: TOTAL BILIRUBIN 0.6 mg/dL (0.0-1.0)
[2018-05-19 18:32] LABS: SERUM ETHYL ALCOHOL < 10 mg/dL
[2018-05-19 18:33] LABS: ALKALINE PHOSPHATASE 81 IU/L (3-129); CREATININE 5.2 mg/dL (0.6-1.3); GFR ESTIMATE (CALCULATED) 10 mL/min/
[2018-05-19 18:34] LABS: UREA NITROGEN (BUN) 35 mg/dL (9-23)
[2018-05-19 18:36] LABS: ALT (GPT) 4 IU/L (3-49)
[2018-05-19 18:40] LABS: AST (GOT) 14 IU/L (2-34)
[2018-05-19 18:41] LABS: QUANTITATIVE HCG 4.8 MIU/ML
[2018-05-19] MEDS ORDERED: REGLAN10 MG PO (21:41)
[2018-05-19] MEDS ORDERED: LABETALOL HCL200 MG PO (21:45)
[2018-05-19] MEDS ORDERED: LO-DOSE ASPIRIN81 M2 PO (21:46)
[2018-05-19 23:40] VITALS: BP 154/109
[2018-05-20] VITALS (29 sets, daily range): BP systolic 114–173; BP diastolic 74–116
[2018-05-20 05:51] LABS: HEMATOCRIT 26.2 % (36.0-46.0); HEMOGLOBIN 7.9 G/DL (11.9-15.5); MCH 27.3 PG (29.0-34.0); MCHC 30.2 G/DL (30.0-36.0); MCV 90.7 FL (83-99); PLATELET COUNT 79 K/uL (156-360); RBC DIS.WIDTH-CV 16.5 % (11.8-14.6); RBC DIS.WIDTH-SD 54.2 % (39-53); RED BLOOD COUNT 2.89 M/uL (3.80-5.20); WHITE BLOOD COUNT 6.8 K/uL (4.1-10.2)
[2018-05-20 06:13] LABS: ALKALINE PHOSPHATASE 67 IU/L (3-129); ALT (GPT) 3 IU/L (3-49); AST (GOT) 10 IU/L (2-34); CHLORIDE 99 MEQ/L (99-109); CREATININE 5.6 MG/DL (0.6-1.3); DIRECT BILIRUBIN 0.2 mg/dL (0.0-0.3); GFR ESTIMATE (CALCULATED) 9 mL/min/; GLUCOSE 77 mg/dL (70-99); MAGNESIUM 1.8 mg/dl (1.3-2.7); POTASSIUM 4.9 MEQ/L (3.7-5.4); SODIUM 136 MEQ/L (136-147); TOTAL BILIRUBIN 0.5 MG/DL (0.0-1.0); TOTAL PROTEIN 5.8 G/DL (6.4-8.3); UREA NITROGEN (BUN) 44 mg/dL (9-23)
[2018-05-21] VITALS (16 sets, daily range): BP systolic 114–155; BP diastolic 75–108
[2018-05-21 05:31] LABS: HEMATOCRIT 24.8 % (36.0-46.0); HEMOGLOBIN 7.6 G/DL (11.9-15.5); MCH 27.4 PG (29.0-34.0); MCHC 30.6 G/DL (30.0-36.0); MCV 89.5 FL (83-99); PLATELET COUNT 61 K/uL (156-360); RBC DIS.WIDTH-CV 16.5 % (11.8-14.6); RBC DIS.WIDTH-SD 54.3 % (39-53); RED BLOOD COUNT 2.77 M/uL (3.80-5.20); WHITE BLOOD COUNT 5.4 K/uL (4.1-10.2)
[2018-05-21 06:11] LABS: CHLORIDE 99 MEQ/L (99-109); GLUCOSE 77 mg/dL (70-99); MAGNESIUM 1.8 mg/dl (1.3-2.7); PHOSPHORUS 4.5 mg/dL (2.5-4.9); SODIUM 139 MEQ/L (136-147); UREA NITROGEN (BUN) 30 mg/dL (9-23)
[2018-05-21 06:19] LABS: GFR ESTIMATE (CALCULATED) 14 mL/min/; POTASSIUM 3.9 MEQ/L (3.7-5.4)
[2018-05-21 10:47] LABS: HEPATITIS B SURFACE ANTIGEN Nonreactive
[2018-05-22 04:40] VITALS: BP 142/92
[2018-05-22 08:22] LABS: BASOPHIL (%) 1.3 % (0-1); BASOPHIL COUNT 0.1 K/uL (0-0.1); EOSINOPHIL (%) 6.1 % (0-5); EOSINOPHIL COUNT 0.3 K/uL (0-0.3); HEMATOCRIT 25.4 % (36.0-46.0); HEMOGLOBIN 7.9 G/DL (11.9-15.5); IMMATURE GRANULOCYTE (%) 1.3 % (0.0-0.7); LYMPHOCYTE (%) 33.5 % (15-42); LYMPHOCYTE COUNT 1.8 K/uL (1.0-2.8); MCH 28.3 PG (29.0-34.0); MCHC 31.1 G/DL (30.0-36.0); MONOCYTE (%) 10.4 % (3-12); MONOCYTE COUNT 0.6 K/uL (0-0.8); NEUTROPHIL (%) 47.4 % (45-76); NEUTROPHIL COUNT 2.6 K/uL (1.8-6.4); PLATELET COUNT 72 K/uL (156-360); RBC DIS.WIDTH-CV 16.7 % (11.8-14.6); RBC DIS.WIDTH-SD 54.5 % (39-53); RED BLOOD COUNT 2.79 M/uL (3.80-5.20); WHITE BLOOD COUNT 5.4 K/uL (4.1-10.2)
[2018-05-22 08:43] LABS: CHLORIDE 96 MEQ/L (99-109); GFR ESTIMATE (CALCULATED) 10 mL/min/; MAGNESIUM 1.7 mg/dl (1.3-2.7); PHOSPHORUS 4.6 mg/dL (2.5-4.9); POTASSIUM 4.2 MEQ/L (3.7-5.4); SODIUM 137 MEQ/L (136-147); UREA NITROGEN (BUN) 40 mg/dL (9-23)
[2018-05-22 08:44] LABS: CREATININE 5.3 MG/DL (0.6-1.3); GLUCOSE 112 mg/dL (70-99)
[2018-05-22 11:48] VITALS: BP 155/96
[2018-05-22 15:34] VITALS: BP 122/78
[2018-05-22 19:11] VITALS: BP 134/84
[2018-05-23] VITALS: BP 120/74
[2018-05-23 04:00] VITALS: BP 135/89
[2018-05-23 05:50] LABS: HEMOGLOBIN 7.8 G/DL (11.9-15.5); MCH 27.9 PG (29.0-34.0); MCV 92.9 FL (83-99); RBC DIS.WIDTH-CV 16.6 % (11.8-14.6); RBC DIS.WIDTH-SD 55.6 % (39-53); WHITE BLOOD COUNT 5.6 K/uL (4.1-10.2)
[2018-05-23 06:22] LABS: CHLORIDE 96 MEQ/L (99-109); GFR ESTIMATE (CALCULATED) 12 mL/min/; MAGNESIUM 1.8 mg/dl (1.3-2.7); PHOSPHORUS 4.2 mg/dL (2.5-4.9); POTASSIUM 4.5 MEQ/L (3.7-5.4); SODIUM 138 MEQ/L (136-147); UREA NITROGEN (BUN) 28 mg/dL (9-23)
[2018-05-23 06:26] LABS: CREATININE 4.3 MG/DL (0.6-1.3); GLUCOSE 83 mg/dL (70-99)
[2018-05-23 07:05] LABS: PLAT.SUFFICIENCY DECREASED
[2018-05-23 07:07] LABS: PLATELET COUNT 43 K/uL (156-360)
[2018-05-23] MEDS ORDERED: LEVETIRACETAM500 MG PO (07:58)
[2018-05-23 08:15] VITALS: BP 135/79
== END 2018-05-23 13:25 | disposition home health service (06) | DRG 963 ==
LOC: EME 17:03 → 4WEST 21:56 → EDOF 21:56 → 4WEST 23:15 → ENRESERV 05-20 20:31 → 4EAST 05-21 21:24
PROVIDERS: Emergency Medicine; Internal Medicine Nephrology
DX: S06.5X0A Traumatic subdural hemorrhage without loss of consciousness, initial encounter (principal); N18.6 End stage renal disease; M32.9 Systemic lupus erythematosus, unspecified; S32.10XA Unspecified fracture of sacrum, initial encounter for closed fracture; I12.0 Hypertensive chronic kidney disease with stage 5 chronic kidney disease or end stage renal disease; G40.409 Other generalized epilepsy and epileptic syndromes, not intractable, without status epilepticus; F17.210 Nicotine dependence, cigarettes, uncomplicated; D69.6 Thrombocytopenia, unspecified; D68.61 Antiphospholipid syndrome; E78.5 Hyperlipidemia, unspecified; D63.1 Anemia in chronic kidney disease; K21.9 Gastro-esophageal reflux disease without esophagitis; F14.10 Cocaine abuse, uncomplicated; G89.29 Other chronic pain; J32.0 Chronic maxillary sinusitis; W18.39XA Other fall on same level, initial encounter; Z91.15 Patient's noncompliance with renal dialysis; Z99.2 Dependence on renal dialysis; Y92.89 Other specified places as the place of occurrence of the external cause
CPT/HCPCS: 70450; 70551; 72192; 80048; 80053; 80076; 80185; 81003; 83735; 84100; 84702; 85025; 85027; 85610; 85730; 87340; 87641; 93005; 99281; 99285; G0480; J0360; J0881; J1165; J2060; J2405; J3010; J7050